=== PATIENT | female | born 1935 | race Caucasian/White ===

== ENCOUNTER 2016-11-06 01:38 | Emergency (ER) | payer MEDICARE ==
[2016-03-11 14:30] VITALS: BMI 22.1
[~2016-11-06 01:38] MED LIST: ARICEPT10 MG PO; ATIVAN0.5 MG PO; BUSPAR 15 MG TA15 MG PO; BUSPAR5 MG PO; DEPAKOTE125 MG PO; FLORANEX / LACT1 TAB PO; ISOSORBIDE MONO30 M1 PO; LIVALO2 MG PO; MEGACE40 MG PO; PACERONE100 MG PO; PRAVACHOL20 MG PO; SEROQUEL25 MG PO; TRAVATAN Z2.5 ML EACH EYE; VITAMIN D31000 UNIT PO; VITAMIN D5000 UNIT PO; ZOLOFT100 MG PO
[2016-11-06 02:11] LABS: UDS - AMPHET NEGATIVE QUAL (NEGATIVE); UDS - BARB NEGATIVE QUAL (NEGATIVE); UDS - BENZO NEGATIVE QUAL (NEGATIVE); UDS - COCAINE NEGATIVE QUAL (NEGATIVE); UDS - METH NEGATIVE QUAL (NEGATIVE); UDS - OPIATE NEGATIVE QUAL (NEGATIVE); UDS - PCP NEGATIVE QUAL (NEGATIVE); UDS - THC NEGATIVE QUAL (NEGATIVE)
[2016-11-06 02:12] LABS: APPEARANCE TURBID (CLEAR); COLOR YELLOW (YELLOW); GLUCOSE NEGATIVE (NEGATIVE); KETONE SMALL mg/dL (NEGATIVE); LEUKOCYTE ESTERASE 1+ (NEGATIVE); NITRITE NEGATIVE (NEGATIVE); PROTEIN TRACE mg/dL (NEGATIVE); SPECIFIC GRAVITY 1.015 (1.005-1.020)
[2016-11-06 02:13] LABS: AMORPHOUS SEDIMENT >1+ /lpf (NONE SEEN); BACTERIA MANY /hpf (NONE SEEN); BILIRUBIN NEGATIVE (NEGATIVE); UROBILINOGEN NORMAL (NORMAL)
[2016-11-06 02:17] LABS: BASOPHILS 0.1 % (0.0-2.0); EOSINOPHILS 1.1 % (0-7); HEMATOCRIT 37.9 % (36.0-48.0); HEMOGLOBIN 11.8 g/dL (12-16); IMMATURE GRANULOCYTES 0.4 % (0-5); MCH 29.9 pg (26.0-34.0); MCHC 31.1 g/dL (31.0-37.0); MCV 95.9 fL (80.0-100.0); MEAN PLATELET VOLUME 10.1 fL (7.4-10.4); MONOCYTES 7.5 % (2-11); NEUTROPHILS 54.9 % (40-80); RBC 3.95 10x6/uL (4.00-5.40); RDW 14.3 % (11.5-14.5); WBC 7.9 10x3/uL (4.8-10.8)
[2016-11-06 02:19] LABS: PLATELET COUNT 238 10x3/uL (130-400)
[2016-11-06 02:35] LABS: ALKALINE PHOSPHATASE 66 U/L (46-116); ALT (SGPT) 15 U/L (10-68); BILIRUBIN - TOTAL 0.24 mg/dL (0.2-1.3); CALC OSMOLALITY 286 mosm/kg (275-300); CALCIUM 8.8 mg/dL (8.5-10.1); CARBON DIOXIDE 33.4 mmol/L (21.0-32.0); CHLORIDE - SERUM 104 mmol/L (98-107); CREATININE - SERUM 0.7 mg/dL (0.6-1.3); GLUCOSE 85 mg/dL (74-106); POTASSIUM - SERUM 4.8 mmol/L (3.5-5.1); PROTEIN - SERUM 7.7 g/dL (6.4-8.2); SODIUM 143 mmol/L (136-145); UREA NITROGEN 22 mg/dL (7-18); eGFR NON AFRICAN AMERICAN 85 mL/min (90-120)
[2016-11-06 02:43] LABS: DIGOXIN 0.07 ng/mL (0.90-2.00); THYROID STIMULATING HORMONE 6.86 uIU/mL (0.36-3.74)
[2016-11-12 13:18] LABS: AEROBE ID Final report (()); RESULT 1 Aerococcus urinae (())
[2017-01-11 15:45] VITALS: BMI 15.9
== END 2016-11-06 03:40 | disposition home or self-care (01) ==
LOC: D.ER 01:38
PROVIDERS: Emergency Medicine
DX: R41.82 Altered mental status, unspecified (principal); N39.0 Urinary tract infection, site not specified; E86.0 Dehydration; F03.90 Unspecified dementia, unspecified severity, without behavioral disturbance, psychotic disturbance, mood disturbance, and anxiety; Z95.0 Presence of cardiac pacemaker

== ENCOUNTER 2016-11-26 08:03 | Inpatient (IN) | payer MEDICARE ==
[2016-11-26] VITALS (8 sets, daily range): BP systolic 113–146; BP diastolic 47–84; BMI 17.2
[~2016-11-26] VITALS: Ht 160 cm; Wt 41.8 kg
[2016-11-26 08:43] LABS: BASOPHILS 0.1 % (0.0-2.0); EOSINOPHILS 0.1 % (0-7); HEMATOCRIT 38.2 % (36.0-48.0); HEMOGLOBIN 11.8 g/dL (12-16); IMMATURE GRANULOCYTES 0.8 % (0-5); LYMPHOCYTES 8.4 % (15-50); MCH 29.6 pg (26.0-34.0); MCHC 30.9 g/dL (31.0-37.0); MEAN PLATELET VOLUME 10.7 fL (7.4-10.4); MONOCYTES 7.4 % (2-11); NEUTROPHILS 83.2 % (40-80); PLATELET COUNT 218 10x3/uL (130-400); RBC 3.98 10x6/uL (4.00-5.40); RDW 15.1 % (11.5-14.5); WBC 16.9 10x3/uL (4.8-10.8)
[2016-11-26 09:00] LABS: ALBUMIN 2.5 g/dL (3.4-5.0); ALKALINE PHOSPHATASE 82 U/L (46-116); ALT (SGPT) 14 U/L (10-68); CALC OSMOLALITY 297 mosm/kg (275-300); CALCIUM 8.5 mg/dL (8.5-10.1); CARBON DIOXIDE 33.2 mmol/L (21.0-32.0); CHLORIDE - SERUM 108 mmol/L (98-107); CREATININE - SERUM 0.6 mg/dL (0.6-1.3); GLUCOSE 114 mg/dL (74-106); POTASSIUM - SERUM 3.6 mmol/L (3.5-5.1); PROTEIN - SERUM 7.5 g/dL (6.4-8.2); SODIUM 148 mmol/L (136-145); UREA NITROGEN 22 mg/dL (7-18); eGFR NON AFRICAN AMERICAN > 90 mL/min (90-120)
[2016-11-26 09:10] LABS: CREATINE KINASE 28 UL (21-215); PRO BNP 956 pg/mL (0-450); TROPONIN-I < 0.017 ng/mL (0.000-0.060)
[2016-11-26 09:33] LABS: APPEARANCE CLOUDY (CLEAR); BILIRUBIN NEGATIVE (NEGATIVE); COLOR YELLOW (YELLOW); GLUCOSE 50 mg/dL (NEGATIVE); KETONE NEGATIVE (NEGATIVE); LEUKOCYTE ESTERASE NEGATIVE (NEGATIVE); NITRITE NEGATIVE (NEGATIVE); PROTEIN TRACE mg/dL (NEGATIVE); SPECIFIC GRAVITY 1.025 (1.005-1.020); UROBILINOGEN NORMAL (NORMAL)
[2016-11-26 09:34] LABS: BACTERIA MANY /hpf (NONE SEEN); EPITHELIAL CELLS OCC /hpf (0-5); MUCUS <1+ /lpf (NONE SEEN); RED CELLS - URINE OCC /hpf (0-5); WHITE CELLS - URINE 0-5 /hpf (0-5)
--- NOTE | 2016-11-26 13:00 | NUR ---
TALKED TO YENNY ABOUT PT BEING ON NONREBREATHER SAID WILL BE UP TO THONG IF PT GOES TO ICU OR NOT. PT STABLE AT THIS TIME OK TO BE ON THE FLOOR.
--- NOTE | 2016-11-26 13:00 | NUR ---
PT TO ROOM. PT VERY LETHARGIC. VS WNL. PIV TO LEFT HAND SWAB CAPS ON. DAUGHTER AT BEDSIDE. PT WITH NONREBREATHER MASK ON. PT NON RESPONSIVE TO STIMULI. WILL ADMIT
[2016-11-26] MEDS ORDERED: IPRAT-ALBUT 0.5-3 ML UPD (13:52)
[2016-11-26] MEDS ORDERED: OMNICEF300 MG PO (13:53)
[2016-11-26] MEDS ORDERED: GUAIFENESI100 MG/5 M PO (13:55)
[2016-11-26] MEDS ORDERED: SENNA LAXATIVE8.6 MG PO (13:56)
[2016-11-26] MEDS ORDERED: DEPAKOTE125 MG PO (13:57)
[2016-11-26] MEDS ORDERED: CALCIUM 500 + D1 TAB PO (13:58)
[2016-11-26] MEDS ORDERED: SEROQUEL50 MG PO (13:59)
[2016-11-26] MEDS ORDERED: SEROQUEL25 MG PO (13:59)
[2016-11-26] MEDS ORDERED: ACETAMINOPHEN325 MG PO (14:00)
[2016-11-26] MEDS ORDERED: REMERON15 MG PO (14:00)
[2016-11-26] MEDS ORDERED: ACIDOPHILUS LAC1 CAP PO (14:02)
[2016-11-26] MEDS ORDERED: LISINOPRIL10 MG PO (14:02)
[2016-11-26] MEDS ORDERED: NUEDEXTA 20-101 EACH PO (14:07)
--- NOTE | 2016-11-26 14:40 | NUR ---
INSERTED 16F MCCLELLAN STERILE TECHNIQUE INITIATED. IMMEDIATE URINE RETURN OF 600 CC BACK. PT TOLERATED WELL. MCCELLLAN DRAINING TO GRAVITY. DARK YELLOW CONCENTRATED. PT IN NO S/S DISTRESS WILL CONT TO MONITOR.
--- NOTE | 2016-11-26 15:31 | NUR ---
TALKED WITH DR BENITO ABOUT PT. BUGGYMAN CAME AND GOT ME PT RR ARE 43. WENT TO PT ROOM WITH DR BENITO. HE ASSESSED PT AND SAID TO ORDER ABG AND ECHO. DONE.
--- NOTE | 2016-11-26 16:58 | NUR ---
CALLED REPORT TO BRANDON IN ICU. MOVING PT TO ROOM [address]EN[address]O.
--- NOTE | 2016-11-26 17:15 | NUR ---
REC'D VIA BED FROM MED 2 NURSE, O2 VIA NR AT 100%, SAT 98%, TACHYPNIC, CONGESTED, CONTRACTED, FOLLOWS SIMPLE COMMANDS, ASSESSMENT COMPLETE PER FLOWSHEET, SPOUSE CALLED TO BEDSIDE, STATUS UPDATED, DISCUSSED CODE STATUS OF PATIENT, STATES DAUGHTER PRINCE CAPUTO IS POA, AND PATIENT TO REMAIN FULL CODE, MCCLELLAN TO GRAVITY WITH CONCENTRATED DRAINAGE TO BAG, SCD'S B/L, REPOSITIONED TO RIGHT SIED WITH PILLOW PROPPED TO BACK AND HEELS FLOATED
--- NOTE | 2016-11-26 17:17 | NUR ---
TRANSFERRED PT TO ICU ROOM [id number]
--- NOTE | 2016-11-26 17:25 | NUR ---
CALLED PT DAUGHTER DESMOND AND LET HER KNOW THAT PT WAS MOVED TO ROOM 2309.. PT VERBALIZES UNDERSTANDING.
--- NOTE | 2016-11-26 19:30 | NUR ---
ASSESSMENT COMPLETE. S1S2. PACEMAKER. RR SHALLOW; TACHYPNEA; CRACKLES THROUGHOUT ALL LOBES. FREQUENT COUGH NOTED. NON PRODUCTIVE; WEAK. PT ON 100% VIA NON REBREATHER. 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 MODERATE STIFFNESS NOTED TO THE UPPER EXTREMITIES. GREEN DISCHARGE IN RIGHT EYE. SEE FLOW SHEET FOR DETAILS.
--- NOTE | 2016-11-26 20:45 | NUR ---
NS BOLUS INFUSING PER SEPSIS PROTOCOL. SEE EMAR FOR DETAILS.
--- NOTE | 2016-11-26 23:10 | NUR ---
REASSESSMENT COMPLETE. NO CHANGES FROM PREVIOUS ASSESSMENT. WILL CONTINUE TO MONITOR.
[2016-11-27] VITALS (24 sets, daily range): BP systolic 97–161; BP diastolic 52–91; Ht 160 cm; Wt 41.8 kg
--- NOTE | 2016-11-27 00:25 | NUR ---
COMPLETE BED BATH. COMPLETE LINEN CHANGE. PT ROTATED FOR COMFORT AND TO TAKE PRESSURE OFF OF THE COCCYX. PILLOW BETWEEN LEGS.
--- NOTE | 2016-11-27 03:10 | NUR ---
REASSESSMENT COMPLETE. NO CHANGES FROM PREVIOUS ASSESSMENT. SEE FLOW SHEET FOR DETAILS.
[2016-11-27 04:54] LABS: HEMATOCRIT 39.3 % (36.0-48.0); HEMOGLOBIN 11.9 g/dL (12-16); MCH 29.3 pg (26.0-34.0); MCHC 30.3 g/dL (31.0-37.0); MCV 96.8 fL (80.0-100.0); MEAN PLATELET VOLUME 10.7 fL (7.4-10.4); PLATELET COUNT 234 10x3/uL (130-400); RBC 4.06 10x6/uL (4.00-5.40); RDW 14.9 % (11.5-14.5); WBC 20.9 10x3/uL (4.8-10.8)
[2016-11-27 05:21] LABS: EOSINOPHILS 1 % (0-7); LYMPHOCYTES 6 % (15-50); MONOCYTES 4 % (2-11); NEUTROPHILS 86 % (40-80); PLATELET ESTIMATE NORMAL
[2016-11-27 05:28] LABS: CALC OSMOLALITY 299 mosm/kg (275-300); CALCIUM 8.3 mg/dL (8.5-10.1); CARBON DIOXIDE 36.3 mmol/L (21.0-32.0); CHLORIDE - SERUM 107 mmol/L (98-107); CREATININE - SERUM 0.7 mg/dL (0.6-1.3); GLUCOSE 138 mg/dL (74-106); MAGNESIUM - SERUM 1.9 mg/dL (1.8-2.4); PHOSPHOROUS 3.8 mg/dL (2.5-4.9); POTASSIUM - SERUM 3.5 mmol/L (3.5-5.1); SODIUM 148 mmol/L (136-145); UREA NITROGEN 25 mg/dL (7-18); eGFR NON AFRICAN AMERICAN 85 mL/min (90-120)
--- NOTE | 2016-11-27 07:30 | NUR ---
RECEIVED PT FOR CARE. PT RESTING IN BED WITH EYES CLOSED. RIGHT EYE MATTED SHUT WITH YELLOW DRAINAGE. EYES CLEANED OUT WITH WARM RAG. PT TOLERATED WELL. BILATERAL SCDs IN PLACE.
--- NOTE | 2016-11-27 09:20 | NUR ---
NO CHANGES NOTED
--- NOTE | 2016-11-27 11:48 | NUR ---
PT HAD COMPLETE BATH AND LINEN CHANGE. TOLERATED WELL. NO NEEDS AT THIS TIME.
--- NOTE | 2016-11-27 12:40 | NUR ---
Is the patient Alert and Oriented? No 0 * PCP DR. COLON 0 * Pharmacy MED FROM ALF 0 * Preadmission Environment [facility] Facility 0 * Facility Name [facility] 0 * ADLs Total Dependent 0 * Equipment None 0 * Other Equipment PATIENT IS BED BOUND 0 * List name and contact numbers for known caregivers / representatives who currently or will assist patient after discharge: DAUGHTER: DESMOND VALDEZ [phone] BOYFRIEND: SERA SARMIENTO [phone] 0 * Community resources currently utilized None 0 * Additional services required to return to the preadmission environment? No 0 * Can the patient safely return to the preadmission environment? Yes 0 * Has this patient been hospitalized within the prior 30 days at any hospital? No 0 Grand Total: 0 PATIENT LIVES AT [facility]. SHE HAS BEEN A RESIDENT THERE FOR ABOUT 18 MONTHS. PATIENT IS NOT ABLE TO ANSWER QUESTIONS. HER DAUGHTER IS AT THE BEDSIDE. SHE STATES HER MOTHER'S PCP IS DR. COLON. SHE GETS HER MEDS THRU THE ALF. SHE IS BEDBOUND AND DOES NOT WALK. SHE STATES PLANS FOR HER TO RETURN BACK TO [facility] AND [facility] AT DISCHARGE.
--- NOTE | 2016-11-27 15:10 | NUR ---
PT'S FAMILY AT BEDSIDE. UPDATED ON PT'S STATUS.
--- NOTE | 2016-11-27 18:20 | NUR ---
PT'S FAMILY AT BEDSIDE. GIVEN MOUTH SWABS TO SWAB PT'S MOUTH OUT. PT ASKING FOR SOMETHING TO DRINK. WILL KEEP NPO AT THIS TIME AND SPEECH EVAL ORDERED FOR MORNING.
--- NOTE | 2016-11-27 19:50 | NUR ---
REC'D TO CARE, TECHNOLOGY RISK INTERN PER FLOWSHEET. PT AWAKE, VERBALIZES SOME, CONFUSION NOTED. ARMS AND LEGS CONTRACTED IN TOWARD BODY. PT VERY THIN, SKIN INTACT, SMALL BLANCHABLE AREA TO R BUTTOCKS. PT REPOSITIONED UP IN BED TO R SIDE.. DENIES PAIN OR NEEDS.
--- NOTE | 2016-11-27 21:45 | NUR ---
CARE PLAN REVIEWED. PT REPOSITIONED TO L SIDE WITH PILLOWS TO BONY PROMINENCES. PT COOPERATIVE, DENIES NEED.
--- NOTE | 2016-11-27 22:44 | NUR ---
REASSESSMENT PER FLOWSHEET. NO ACUTE CHANGES. RESTING QUIETLY, VSS.
[2016-11-28] VITALS (25 sets, daily range): BP systolic 100–159; BP diastolic 56–102
--- NOTE | 2016-11-28 00:23 | NUR ---
REPOSITIONED UP IN BED AND ORAL CARE PROVIDED. PT COOPERATIVE, REMAINS PLEASANTLY CONFUSED. VSS. ALARMS ON.
--- NOTE | 2016-11-28 02:05 | NUR ---
REPOSITIONED UP IN BED. VSS. OCC YELLING OUT, BUT DENIES NEEDS. ANSWERING QUESTIONS MORE APPROP AT TIMES. NO SIGN OF DISTRESS.
--- NOTE | 2016-11-28 03:17 | NUR ---
REASSESSMENT PER FLOWSHEET. NO ACUTE CHANGES. VSS. CALM AND RESTING AT THIS TIME.
[2016-11-28 04:10] LABS: BASOPHILS 0.2 % (0.0-2.0); EOSINOPHILS 0 % (0-7); IMMATURE GRANULOCYTES 1.3 % (0-5); LYMPHOCYTES 8.1 % (15-50); MCH 29.4 pg (26.0-34.0); MCHC 30.6 g/dL (31.0-37.0); MCV 96.3 fL (80.0-100.0); MEAN PLATELET VOLUME 10.4 fL (7.4-10.4); MONOCYTES 7.1 % (2-11); NEUTROPHILS 83.3 % (40-80); PLATELET COUNT 215 10x3/uL (130-400); RBC 3.74 10x6/uL (4.00-5.40); RDW 14.7 % (11.5-14.5)
[2016-11-28 04:13] LABS: WBC 14.2 10x3/uL (4.8-10.8)
[2016-11-28 04:20] LABS: ANION GAP 7.8 mmol/L (8-16); CALCIUM 8.3 mg/dL (8.5-10.1); CREATININE - SERUM 0.8 mg/dL (0.6-1.3)
[2016-11-28 04:28] LABS: POTASSIUM - SERUM 2.8 mmol/L (3.5-5.1)
--- NOTE | 2016-11-28 05:00 | NUR ---
K+ 2.8 - INITIATE KCL RIDERS 100MG IV X 6 PER ELECTROLYTE PROTOCOL
--- NOTE | 2016-11-28 06:16 | NUR ---
PT WITH OXYMIZER PULLED OFF - POX 92% ON RA. CHANGED O2 TO 3L NC - POX 95%
--- NOTE | 2016-11-28 06:21 | NUR ---
ADMIN TYLENOL PO PER NEW ORDER.
--- NOTE | 2016-11-28 11:00 | NUR ---
NO CHANGE NOTED
--- NOTE | 2016-11-28 15:00 | NUR ---
NO CHANGE NOTED
--- NOTE | 2016-11-28 19:45 | NUR ---
ASSESSMENT COMPLETED. SEE ASSESSMENT FLOWSHEET. HIGH PITCHED VOICE. CONFUSED, REORIENTED. ORAL CARE COMPLETED DUE TO NPO STATUS. MCCLELLAN CATHETER TO GRAVITY DRAINING SMALL AMOUNT OF CLEAR, MARRY URINE. LEFT HAND 18G PIV INTACT WITH D5NS @ 100ML/HR AND KCL RIDER FINISHING. O2 @ 3LPM/NC AND OUT OF NARES. O2 SAT 88%. PLACED O2 BACK IN NARES. WILL MONITOR.
--- NOTE | 2016-11-28 21:00 | NUR ---
FAMILY AT BEDSIDE FOR VISTATION. QUESTIONS ASKED, UPDATE GIVE. INFORMED OF NPO STATUS AND OF CURRENT DVT. WILL MONITOR.
--- NOTE | 2016-11-28 23:00 | NUR ---
NO ACUTE DISTRESS NOTED. WILL MONITOR.
--- NOTE | 2016-11-28 23:40 | NUR ---
CHANGED B/P CUFFS TO RT ARM AND REASSESSMENT COMPLETED. SEE ASSESSMENT FLOWSHEET. REMAINS CONFUSED. REORIENTED. DOES NOT WANT TO BE TOUCHED TO CHANGED B/P CUFF BUT EXPLAINED THE NEED. SWEATING NOTED. A/C IN ROOM TURNED DOWN. NO TEMP NOTED. WILL MONITOR.
[2016-11-29] VITALS (21 sets, daily range): BP systolic 83–181; BP diastolic 50–143
--- NOTE | 2016-11-29 01:30 | NUR ---
EYES CLOSED. NO ACUTE DISTRESS NOTED. WILL CONTINUE TO MONITOR.
--- NOTE | 2016-11-29 03:30 | NUR ---
PORTABLE CHEST XRAY COMPLETED. I & O'S COMPLETED. WILL MONITOR.
--- NOTE | 2016-11-29 04:00 | NUR ---
REASSESSMENT COMPLETED. SEE ASSESSMENT FLOWSHEET. NO NEW ACUTE CHANGES NOTED. AM LABS DRAWN. TOTAL BED BATH AND LINEN CHANGE COMPLETED. TOLERATED WELL WITH MINIMAL HOLLERING OUT. MCCLELLAN CATH CARE COMPLETED. TURNED AND REPOSITIONED TO RT SIDE WITH PILLOW SUPPORT. REDNESS TO BUTTOCKS NOTED AND ALEXANDRA'S BUTT PASTE APPLIED. WILL MONITOR.
[2016-11-29 04:34] LABS: BASOPHILS 0.4 % (0.0-2.0); EOSINOPHILS 0.4 % (0-7); HEMATOCRIT 35.4 % (36.0-48.0); HEMOGLOBIN 11.2 g/dL (12-16); IMMATURE GRANULOCYTES 3.1 % (0-5); LYMPHOCYTES 17.7 % (15-50); MCH 30.2 pg (26.0-34.0); MCHC 31.6 g/dL (31.0-37.0); MCV 95.4 fL (80.0-100.0); MEAN PLATELET VOLUME 10.4 fL (7.4-10.4); MONOCYTES 7.6 % (2-11); NEUTROPHILS 70.8 % (40-80); PLATELET COUNT 192 10x3/uL (130-400); RBC 3.71 10x6/uL (4.00-5.40); RDW 14.8 % (11.5-14.5); WBC 11.4 10x3/uL (4.8-10.8)
[2016-11-29 04:56] LABS: CALC OSMOLALITY 294 mosm/kg (275-300); CALCIUM 8.5 mg/dL (8.5-10.1); CARBON DIOXIDE 33.2 mmol/L (21.0-32.0); CHLORIDE - SERUM 110 mmol/L (98-107); CREATININE - SERUM 0.6 mg/dL (0.6-1.3); GLUCOSE 118 mg/dL (74-106); MAGNESIUM - SERUM 1.8 mg/dL (1.8-2.4); PHOSPHOROUS 2.1 mg/dL (2.5-4.9); POTASSIUM - SERUM 3.6 mmol/L (3.5-5.1); PRE-ALBUMIN 12.8 mg/dL (18.0-35.7); SODIUM 147 mmol/L (136-145); UREA NITROGEN 17 mg/dL (7-18); eGFR NON AFRICAN AMERICAN > 90 mL/min (90-120)
--- NOTE | 2016-11-29 06:00 | NUR ---
EYES CLOSED. NO ACUTE DISTRESS NOTED. WILL MONITOR.
--- NOTE | 2016-11-29 06:35 | NUR ---
BREATHING TREATMENT IN PROGRESS. NIBP CUFF ADJUSTED AND RETOOK B/P DUE TO HIGH READING. NO ACUTE DISTRESS NOTED. WILL MONITOR.
--- NOTE | 2016-11-29 19:40 | NUR ---
REC'D TO CARE. PHYSIOTHERAPY AIDE PER FLOWSHEET.. PT CONFUSED, BUT ANSWERS MOST QUESTIONS APPROP. EXTR WITH NOTED CONTRACTURES. PT ABLE TO CONVEY NEEDS. ORAL CARE PROVIDED. PT IS NPO. PT WITH TRANSFER ORDERS AWAITING ROOM. ALARMS ON AND C/L IN REACH.
--- NOTE | 2016-11-29 20:50 | NUR ---
NO VISITORS. RESIDENTIAL STAFF CALLED TO CHECK ON HER - SHE REPORTED THAT THEY ARE AWARE OF HER SWALLOWING DIFFICULTY AND THAT DAUGHTER SIGNED A WAVER THERE SAYING PT COULD EAT WHATEVER SHE WANTS.
--- NOTE | 2016-11-29 20:55 | NUR ---
REPOSITIONED UP IN BED. MCCLELLAN - CARE WITH SURE STEP WIPES. PT PLEASANTLY CONFUSED. VSS.
[2016-11-30] VITALS (21 sets, daily range): BP systolic 117–150; BP diastolic 60–96
--- NOTE | 2016-11-30 | NUR ---
RESTING QUIETLY WITH EYES CLOSED, VSS. NO SIGN OF DISTRESS.
[2016-11-30 03:49] LABS: BASOPHILS 0.2 % (0.0-2.0); EOSINOPHILS 0.3 % (0-7); HEMATOCRIT 36.8 % (36.0-48.0); HEMOGLOBIN 11.7 g/dL (12-16); IMMATURE GRANULOCYTES 2.1 % (0-5); LYMPHOCYTES 12.2 % (15-50); MCH 29.3 pg (26.0-34.0); MCHC 31.8 g/dL (31.0-37.0); MEAN PLATELET VOLUME 11.4 fL (7.4-10.4); MONOCYTES 6.6 % (2-11); NEUTROPHILS 78.6 % (40-80); PLATELET COUNT 186 10x3/uL (130-400); RDW 14.7 % (11.5-14.5); WBC 12.4 10x3/uL (4.8-10.8)
[2016-11-30 03:56] LABS: CALC OSMOLALITY 286 mosm/kg (275-300); CALCIUM 8.1 mg/dL (8.5-10.1); CARBON DIOXIDE 30.2 mmol/L (21.0-32.0); CHLORIDE - SERUM 105 mmol/L (98-107); CREATININE - SERUM 0.7 mg/dL (0.6-1.3); GLUCOSE 104 mg/dL (74-106); MAGNESIUM - SERUM 1.6 mg/dL (1.8-2.4); PHOSPHOROUS 2.5 mg/dL (2.5-4.9); POTASSIUM - SERUM 3.9 mmol/L (3.5-5.1); SODIUM 144 mmol/L (136-145); UREA NITROGEN 12 mg/dL (7-18); eGFR NON AFRICAN AMERICAN 85 mL/min (90-120)
--- NOTE | 2016-11-30 08:06 | NUR ---
0700 PT AWAKE AND ALERT BUT DISORIENTED AND CONFUSED. ABLE TO FOLLOW COMMANDS WHEN PROMPTED. HEART SOUNDS REGULAR, S1S2 NOTED. LUNG SOUNDS COURSE/CRACKLES IN UPPER LOBES BILAT AND RT MIDDLE LOBE, DIMINISHED IN LOWER LOBES BILAT. PT TACHYPNIC AT THIS TIME AND INSTRUCTED TO BREATHE SLOWLY. PT ABLE TO GRAB ARM RAILS TO ASSIST WITH TURNING, REPOSITIONED TO RIGHT SIDE. PT DENIES PAIN BUT STATES SHE DOESNT UNDERSTAND WHERE SHE IS AND WHY SHE IS HERE. ATTEMPTED TO REORIENT PT. WILL CONTINUE TO MONITOR
--- NOTE | 2016-11-30 09:12 | NUR ---
NUTRITION MONITORING & EVAL CHART REVIEWED. NPO UNTIL REPEAT SWALLOW EVAL. WILL PROVIDE DIET WHEN OK'D BY SPEECH THERAPY. RD FOLLOWING
--- NOTE | 2016-11-30 10:25 | NUR ---
0900 SPEECH EVAL REPEATED. PT ABLE TO PARTIALLY SWALLOW CRUSHED MEDS BUT FELL ASLEEP DURING EVAL. PT RESTING AT THIS TIME. VITAL SIGNS STABLE.
--- NOTE | 2016-11-30 12:04 | NUR ---
1100 PT REPOSITIONED FOR COMFORT IN BED. WILL DISCUSS CODE STATUS, ANTICOAGULATION ALTERNATIVES, AND NUTRITION NEEDS WITH FAMILY WHEN AVAILABLE. NO FURTHER CHANGES AT THIS TIME. VITAL SIGNS STABLE.
[2016-11-30 17:57] LABS: APPEARANCE CLEAR (CLEAR); BILIRUBIN NEGATIVE (NEGATIVE); COLOR YELLOW (YELLOW); GLUCOSE NEGATIVE (NEGATIVE); KETONE NEGATIVE (NEGATIVE); LEUKOCYTE ESTERASE NEGATIVE (NEGATIVE); NITRITE NEGATIVE (NEGATIVE); PROTEIN TRACE mg/dL (NEGATIVE); SPECIFIC GRAVITY 1.015 (1.005-1.020); UROBILINOGEN NORMAL (NORMAL)
--- NOTE | 2016-11-30 18:40 | NUR ---
1300 FAMILY AT BEDSIDE. EDUCATION GIVEN TO FAMILY ABOUT PEG TUBE FOR PT DUE TO MALNUTRITION. FAMILY VERBALIZES UNDERSTANDING. WILL CONSULT WITH PHYSICIANS.
--- NOTE | 2016-11-30 18:41 | NUR ---
1500 PT REPOSITIONED FOR COMFORT. MCCLELLAN IRRIGATED FOR URINE SPECIMEN. VITAL SIGNS STABLE. NO FURTHER CHANGES.
--- NOTE | 2016-11-30 18:42 | NUR ---
1700 PT AWAKE AND ALERT. DENIES PAIN AT THIS TIME AND STATES THAT SHE IS "READY TO EAT AND GO HOME" SURGERY HAS BEEN CONSULTED FOR PEG TUBE PLACEMENT
--- NOTE | 2016-11-30 19:30 | NUR ---
REC'D TO CARE, OCCUPATIONAL HEALTH COORDINATOR PER FLOWSHEET. PT PLEASANTLY CONFUSED, ANSWERS SOME QUESTIONS APPROP. VSS. NO SIGN OF DISTRESS. PT WITH TRANSFER ORDERS - AWAITING BED. IVF INFUSING TO L WRIST PIV, NO REDNESS OR SWELLING AT SITE.
--- NOTE | 2016-11-30 21:22 | NUR ---
FAMILY AT BS, UPDATE GIVEN AND QUESTIONS ANSWERED.
--- NOTE | 2016-11-30 23:00 | NUR ---
RESTING WITH EYES CLOSED, NO SIGN OF DISTRESS. ALARMS ON.
[2016-12-01] VITALS (14 sets, daily range): BP systolic 105–162; BP diastolic 49–96
--- NOTE | 2016-12-01 00:21 | NUR ---
COMPLETE BATH AND LINEN CHANGE DONE. MCCLELLAN CARE DONE. LOTION TO DRY SKIN AND HAIR WASHED. CHG PREP WIPES USED.
--- NOTE | 2016-12-01 02:00 | NUR ---
PT RESTING QUIETLY, NO SIGN OF DISTRESS. VSS.
--- NOTE | 2016-12-01 04:00 | NUR ---
RESTING QUIETLY, NO SIGN OF DISTRESS. I AND O PER FLOWSHEET.
[2016-12-01 05:10] LABS: BASOPHILS 0.1 % (0.0-2.0); EOSINOPHILS 1.5 % (0-7); HEMATOCRIT 35.1 % (36.0-48.0); HEMOGLOBIN 11.3 g/dL (12-16); IMMATURE GRANULOCYTES 1.4 % (0-5); LYMPHOCYTES 17.5 % (15-50); MCH 29.4 pg (26.0-34.0); MCHC 32.2 g/dL (31.0-37.0); MCV 91.4 fL (80.0-100.0); MEAN PLATELET VOLUME 10.2 fL (7.4-10.4); MONOCYTES 6.5 % (2-11); PLATELET COUNT 193 10x3/uL (130-400); RBC 3.84 10x6/uL (4.00-5.40); RDW 14.5 % (11.5-14.5)
[2016-12-01 05:20] LABS: WBC 9.2 10x3/uL (4.8-10.8)
[2016-12-01 05:23] LABS: CALC OSMOLALITY 278 mosm/kg (275-300); CALCIUM 8.2 mg/dL (8.5-10.1); CHLORIDE - SERUM 104 mmol/L (98-107); CREATININE - SERUM 0.6 mg/dL (0.6-1.3); GLUCOSE 88 mg/dL (74-106); SODIUM 141 mmol/L (136-145); UREA NITROGEN 9 mg/dL (7-18); eGFR NON AFRICAN AMERICAN > 90 mL/min (90-120)
[2016-12-01 05:45] LABS: CARBON DIOXIDE 30.9 mmol/L (21.0-32.0)
[2016-12-01 05:52] LABS: POTASSIUM - SERUM 3.3 mmol/L (3.5-5.1)
--- NOTE | 2016-12-01 06:13 | NUR ---
PT REPOSITIONED UP IN BED, ORAL CARE DONE. PT PLEASANTLY CONFUSED. VSS. NO VISITORS AT THIS TIME.
--- NOTE | 2016-12-01 07:00 | NUR ---
REPORT RECEIVED. PATIENT IN SEMIFOWLERS POSITION WITH EYES CLOSED. ASSESSMENT COMPLETED. NO VISUAL CUES OF DISTRESS NOTED.
--- NOTE | 2016-12-01 11:34 | NUR ---
PATIENT YELLING OUT MOST OF THE MORNING. WHEN YOU ASK WHAT IS WRONG, SHE JUST SAYS THAT SHE IS LONELY. HAVE BEEN IN AND OUT OF HER ROOM, WE HAVE RUBBED LOTION ALL OVER, COMBED HER HAIR 6-7 TIMES, RUBBED HER FEET, REPOSITIONED EVERY HOUR ALMOST AND DONE ORAL CARE ALMOST FREQUENTLY. WILL CONTINUE TO MONITOR. THE LAST VISIT MADE IN THE ROOM, SHE STATED SHE WAS TIRED AND NEEDED A NAP.
--- NOTE | 2016-12-01 12:12 | NUR ---
PATIENTS DAUGHTER AND HRE FRIEND HERE TO SEE PATIENT. DISCUSSED THE EGD WITH CRISELDA MOORE, AT BEDSIDE WITH HER. CONSENTS OBTAINED. THEY DENY QUESTIONS.
--- NOTE | 2016-12-01 15:59 | NUR ---
PATIENTS BOYFRIEND JUST LEFT. PATIENT WAS RESTING COMFORTABLE PRIOR TO THIS PAST VISITATION HOUR. SHE IS BACK TO YELLING AND THIS TIME SHE IS GRABBING AND TWISTING SKIN WHEN THIS NURSE GOT NEAR THE BED. BOYFRIEND STAYED BACK. HE WAS ASKED TO LEAVE, EXPLAINING THAT VISITING HOURS HAVE BEEN OVER FOR ALMOST 30 MINUTES. PATIENT WAS REPOSITIONED, HAIR COMBED, ATTEMPTED TO DO ORAL CARE BUT WAS UNSUCCESSFUL. LIGHT TURNED OFF. HOPEFULLY THE PATIENT WILL CALM DOWN.
--- NOTE | 2016-12-01 17:02 | NUR ---
PATIENT IS RESTING COMFORTABLE ON HER LEFT SIDE. THIS TIME SHE IS REMAINING ON HER SIDE. SHE HAS STOPPED YELLING OUT AND APPEARS TO BE SLEEPING. WILL CONTINUE TO MONITOR.
--- NOTE | 2016-12-01 19:30 | NUR ---
REC'D TO CARE, SCHOOL ADJUSTMENT COUNSELOR PER FLOWSHEET. PT WITH TRANSFER ORDERS - AWAITING BED. PT OCC YELLS OUT, CALMS WHEN TALKED TO. PLEASANTLY CONFUSED. PT WITH SLIGHT CONTRACTURES OF EXTR. PT ABLE TO GRASP. WILL CONT TURN Q2 HR. ORAL CARE PROVIDED. PT NPO. PLAN FOR PEG PLACEMENT TOMORROW. ALARMS ON. C/L IN REACH.
--- NOTE | 2016-12-01 20:34 | NUR ---
DR. EDMOND PAGED RE: LOVENOX - ORDER TO HOLD IN AM.
--- NOTE | 2016-12-01 21:30 | NUR ---
L WRIST PIV LEAKING - D/C'D INTACT AND IVF RESUMED TO R FA PIV.
--- NOTE | 2016-12-01 21:56 | NUR ---
LAM-CARE DONE. PT REPOSITIONED UP IN BED TO R SIDE. FACE WASHED. PILLOW BETWEEN KNEES. BARRIER CREAM TO BUTTOCKS. PT DENIES NEEDS. C/L IN REACH.
--- NOTE | 2016-12-01 23:12 | NUR ---
PT RESTING QUIETLY, VSS. ALARMS ON.
[2016-12-02] VITALS (13 sets, daily range): BP systolic 112–139; BP diastolic 53–96
[2016-12-02 04:18] LABS: BASOPHILS 0.1 % (0.0-2.0); EOSINOPHILS 0.9 % (0-7); HEMATOCRIT 35.8 % (36.0-48.0); HEMOGLOBIN 11.2 g/dL (12-16); IMMATURE GRANULOCYTES 1.3 % (0-5); LYMPHOCYTES 19.2 % (15-50); MCH 28.7 pg (26.0-34.0); MCHC 31.3 g/dL (31.0-37.0); MCV 91.8 fL (80.0-100.0); MEAN PLATELET VOLUME 10.3 fL (7.4-10.4); MONOCYTES 7.7 % (2-11); NEUTROPHILS 70.8 % (40-80); PLATELET COUNT 199 10x3/uL (130-400); RDW 14.5 % (11.5-14.5); WBC 10.3 10x3/uL (4.8-10.8)
[2016-12-02 04:25] LABS: CALC OSMOLALITY 277 mosm/kg (275-300); CALCIUM 7.9 mg/dL (8.5-10.1); CARBON DIOXIDE 32.5 mmol/L (21.0-32.0); CHLORIDE - SERUM 105 mmol/L (98-107); CREATININE - SERUM 0.7 mg/dL (0.6-1.3); GLUCOSE 98 mg/dL (74-106); POTASSIUM - SERUM 4.1 mmol/L (3.5-5.1); SODIUM 140 mmol/L (136-145); UREA NITROGEN 9 mg/dL (7-18); eGFR NON AFRICAN AMERICAN 85 mL/min (90-120)
--- NOTE | 2016-12-02 07:15 | NUR ---
REPORT RECEIVED. ASSESSMENT COMPLETED. PATIENT IN SEMIFOWLERS POSITION. NO NEEDS VOICED.
--- NOTE | 2016-12-02 08:58 | NUR ---
NUTRITION MONITORING & EVAL PT FOR PEG TUBE TODAY. 1)RECOMMEND JEVITY 1.2 @15 CC/HR. 2)INCREASE 10 CC/HR Q 12 HOURS TOLERATED TO GOAL RATE 45 CC/HR. 3)50 CC H2O FLUSH Q 4 HOURS PER PUMP. 4)MONITOR ELECTROLYTES FOR SIGNS OF REFEEDING SYNDROME. RD FOLLOWING
--- NOTE | 2016-12-02 09:39 | NUR ---
DR SIMMONS PAGED IN REGARDS TO CONSULT.
[2016-12-02 11:10] LABS: APPEARANCE CLEAR (CLEAR); BILIRUBIN NEGATIVE (NEGATIVE); COLOR YELLOW (YELLOW); GLUCOSE NEGATIVE (NEGATIVE); KETONE NEGATIVE (NEGATIVE); LEUKOCYTE ESTERASE NEGATIVE (NEGATIVE); NITRITE NEGATIVE (NEGATIVE); PROTEIN TRACE mg/dL (NEGATIVE); SPECIFIC GRAVITY 1.015 (1.005-1.020); UROBILINOGEN NORMAL (NORMAL)
[2016-12-02 11:11] LABS: BACTERIA NONE SEEN /hpf (NONE SEEN); EPITHELIAL CELLS NSEEN /hpf (0-5); RED CELLS - URINE 0-5 /hpf (0-5); WHITE CELLS - URINE 0-5 /hpf (0-5)
--- NOTE | 2016-12-02 11:30 | NUR ---
STARTED BEDSIDE EGD WITH PEG PLACEMENT.
--- NOTE | 2016-12-02 11:45 | NUR ---
BEDSIDE PEG PLACEMENT COMPLETED. WILL GET ABD BINDER ORDERED AND PLACE ON PATIENT.
--- NOTE | 2016-12-02 12:29 | NUR ---
DRAIN GAUZE PLACED AROUND PEG INSERTION SITE. PEG HOOKED UP TO DRAIN TO GRAVITY TO A MCCLELLAN BAG. ABD PLACED.
--- NOTE | 2016-12-02 16:28 | NUR ---
CHAYO, WITH SPEECH THERAPY HERE QUESTIONING TO WETHER OR NOT TO CONTINUE FEEDING TRIALS WITH THE PATIENT. HE STATED THAT SHE WAS ABLE TO DO SOME PUREE ON WEDNESDAY. EXPLAINED THAT I WAS UNDER THE UNDERSTANDING THAT SHE WOULD NOT BE DOING ANYTHING BY MOUTH AFTER THE PEG WAS PLACED. DR CH WAS PAGED TO CONFIRM THIS. EXPLAINED WHAT CHAYO HAD SAID AND PER DR CH, PATIENT WILL NOT DO ANYMORE PO INTAKE AND SPEECH CONSULT WILL BE DISCONTINUED. THIS WAS EXPLAINED TO CHAYO.
--- NOTE | 2016-12-02 17:38 | NUR ---
PATIENT RESTING QUIETLY. SHE BARELY WOKE WHEN SHE WAS REPOSITIONED IN BED. NO VISUAL CUES OF DISTRESS NOTED.
--- NOTE | 2016-12-02 19:27 | NUR ---
REPORT RECIEVED. ASSESSMENT COMPLETE PER FLOW SHEET. VSS. WILL CONTINUE TO MONITOR.
--- NOTE | 2016-12-02 21:26 | OP ---
PATIENT NAME: AGUSTO QUARLES MEDICAL RECORD: [id number] :33 LOCATION:D[facility] [address] ADMISSION DATE:11/26/16 SURGEON: TERRELL CUI MD DATE OF OPERATION: 12/02/2016 SURGEON: Terrell Cui MD PREOPERATIVE DIAGNOSIS: Dysphagia. POSTOPERATIVE DIAGNOSIS: Dysphagia. PROCEDURE PERFORMED: Esophagogastroduodenoscopy with percutaneous endoscopic gastrostomy tube placement. ANESTHESIA: Total intravenous anesthesia. COMPLICATIONS: None. SPECIMENS: None. Case was contaminated. ESTIMATED BLOOD LOSS: 5 cc. OPERATIVE COURSE: After consent was obtained, the patient was placed in supine position on her ICU bed, total intravenous anesthesia was given. A bite block was placed. Hurricaine [place] was administered. A timeout was taken to confirm the correct patient and procedure. At this time, the scope was passed through the bite block into the posterior oropharynx. The epiglottis was identified. The scope was passed posterior to the epiglottis. The esophagus was insufflated. The scope was passed through the esophagus under direct endoscopic vision and advanced to the stomach. The stomach was insufflated. The light was transilluminated at a site in the left upper quadrant. The skin was marked and the skin was prepped and draped in typical sterile fashion. Local anesthetic was administered. The grasper was passed through the working channel on the scope. Under direct endoscopic vision, the needle was passed through the anterior abdominal wall and into the stomach. The Angiocath was left in place. The needle was removed. The wire was passed through the Angiocath. The wire was grasped with a snare grasper. At this time, the wire and the endoscope were removed. The wire was connected to the gastrostomy tube and using a standard pull technique, the gastrostomy tube was advanced into the oropharynx and delivered to the anterior abdominal wall and secured to the skin at 2 cm. At the end of the case, all needle and instrument counts were correct. No complications occurred. The patient tolerated the procedure well. TRANSINT:[id number] Voice Confirmation ID: [id number] DOCUMENT ID: [id number] OPERATIVE REPORT [id number] AGUSTO QUARLES TERRELL CUI MD at 212 CC: [id number] DICTATION DATE: 12/02/16 1143 MANAGER OFFICE: 12/02/16 192 ADM IN [facility] [address] [id number]
[2016-12-03 04:00] VITALS: BP 142/52
[2016-12-03 06:32] LABS: BASOPHILS 0.1 % (0.0-2.0); EOSINOPHILS 1.1 % (0-7); HEMATOCRIT 35.8 % (36.0-48.0); HEMOGLOBIN 11.3 g/dL (12-16); IMMATURE GRANULOCYTES 0.8 % (0-5); LYMPHOCYTES 17.1 % (15-50); MCH 28.9 pg (26.0-34.0); MCHC 31.6 g/dL (31.0-37.0); MCV 91.6 fL (80.0-100.0); MEAN PLATELET VOLUME 10.4 fL (7.4-10.4); NEUTROPHILS 73.9 % (40-80); PLATELET COUNT 210 10x3/uL (130-400); RBC 3.91 10x6/uL (4.00-5.40); WBC 8.6 10x3/uL (4.8-10.8)
[2016-12-03 06:59] LABS: ALBUMIN 2.5 g/dL (3.4-5.0); ALKALINE PHOSPHATASE 55 U/L (46-116); ALT (SGPT) 24 U/L (10-68); BILIRUBIN - TOTAL 0.51 mg/dL (0.2-1.3); CALC OSMOLALITY 273 mosm/kg (275-300); CALCIUM 8.4 mg/dL (8.5-10.1); CARBON DIOXIDE 28.5 mmol/L (21.0-32.0); CHLORIDE - SERUM 102 mmol/L (98-107); CREATININE - SERUM 0.6 mg/dL (0.6-1.3); GLUCOSE 137 mg/dL (74-106); POTASSIUM - SERUM 3.5 mmol/L (3.5-5.1); SODIUM 137 mmol/L (136-145); UREA NITROGEN 8 mg/dL (7-18); eGFR NON AFRICAN AMERICAN > 90 mL/min (90-120)
--- NOTE | 2016-12-03 07:55 | NUR ---
PATIENT ALERT IN BED WITH ZAC NIEVES PRESENT. SIDE RAILS UP X2. BED IN LOW POSITION. CALL LIGHT IN REACH.
--- NOTE | 2016-12-03 08:16 | NUR ---
PT RECIEVED ON WALKING ROUNDS AWAKE AND ALERT TO SURROUONDINGS CONFUSED TO PLACE AND TIME CALL LIGHT INREACH SIDE RAILS UP X 2 PEG PATENT TO ABDOMINAL FLUID LIGHT BROWN TO GRAVITY DRAIN IN FOLY BAG AT BEDSIDE. HAS MCCLELLAN CATHETER PATENT OT CLEAR YELLOW URINE PER GRAVITY FLOW. CONTRACTURES NOTED TO BILATERAL LEGS. IN CONTACT ISOLATION FOR ECOLI IN URINE. WILL MONITOR,
[2016-12-03 08:47] VITALS: BP 126/62
--- NOTE | 2016-12-03 10:41 | NUR ---
NUTRITION MONITORING & EVAL CHART REVIEWED. SPOKE WITH NURSING. ORDERED TUBE FEEDS TO START PER PEG. RECOMMEND MONITOR ELECTROLYTES FOR SIGNS OF REFEEDING SYNDROME. RD FOLLOWING
[2016-12-03 13:06] VITALS: BP 128/49
[2016-12-03 16:23] VITALS: BP 118/57
[2016-12-03 20:00] VITALS: BP 118/58
--- NOTE | 2016-12-03 20:00 | NUR ---
PATIENT SLEEPING ON LEFT SIDE. RR EVEN AND UNLABORED. O2 OFF AT THIS TIME. IV TO RIGHT FA PATENT WITH NO REDNESS OR SWELLING. PEG TUBE TO FEEDINGS WITH ABD BINDER IN PLACE. MCCLELLAN SECURED WITH STATLOCK AND DRAINING TO GRAVITY. SRX2. BED LOW. DOOR OPEN.
--- NOTE | 2016-12-03 23:10 | NUR ---
XANAX GIVEN FOR AGAITION VIA PEG TUBE PER ORDER.
[2016-12-04] VITALS: BP 105/50
--- NOTE | 2016-12-04 | NUR ---
RESIDUAL CHECK YIELDED 0ML.
--- NOTE | 2016-12-04 03:00 | NUR ---
INCREASED FEEDINGS TO 25/HR PER ORDER.
[2016-12-04 04:00] VITALS: BP 96/45
[2016-12-04 05:08] LABS: BASOPHILS 0.1 % (0.0-2.0); EOSINOPHILS 1.6 % (0-7); HEMATOCRIT 32.5 % (36.0-48.0); HEMOGLOBIN 10.3 g/dL (12-16); IMMATURE GRANULOCYTES 0.4 % (0-5); LYMPHOCYTES 24.4 % (15-50); MCH 28.6 pg (26.0-34.0); MCHC 31.7 g/dL (31.0-37.0); MCV 90.3 fL (80.0-100.0); MEAN PLATELET VOLUME 10.3 fL (7.4-10.4); MONOCYTES 7.8 % (2-11); NEUTROPHILS 65.7 % (40-80); PLATELET COUNT 211 10x3/uL (130-400); RDW 14.8 % (11.5-14.5); WBC 8.2 10x3/uL (4.8-10.8)
[2016-12-04 05:47] LABS: CALC OSMOLALITY 276 mosm/kg (275-300); CALCIUM 8.2 mg/dL (8.5-10.1); CARBON DIOXIDE 29.2 mmol/L (21.0-32.0); CHLORIDE - SERUM 105 mmol/L (98-107); CREATININE - SERUM 0.6 mg/dL (0.6-1.3); GLUCOSE 104 mg/dL (74-106); POTASSIUM - SERUM 3.2 mmol/L (3.5-5.1); SODIUM 140 mmol/L (136-145); UREA NITROGEN 7 mg/dL (7-18); eGFR NON AFRICAN AMERICAN > 90 mL/min (90-120)
--- NOTE | 2016-12-04 07:00 | NUR ---
REPORT RECIEVED ASSUMED CARE. PATIENT IN BED WITH IV INTACT. NO COMPLAINTS AT THIS TIME. EYES CLOSED RESTING QUIETLY. CALL LIGHT WITHIN REACH.
[2016-12-04 08:44] VITALS: BP 138/70
--- NOTE | 2016-12-04 10:25 | NUR ---
PATIENT RECIEVED SCHEDULED MEDS AND POTASSIUM AT THIS TIME PER PEG TUBE. IV INTACT. NO COMPLAINTS. RESIDUAL CHECKED. 0 ML. TF GOING AT 35. CALL LIGHT WITHIN REACH.
[2016-12-04] MEDS ORDERED: ISOSORBIDE DINI10 MG PEG (10:50)
[2016-12-04 13:04] VITALS: BP 123/70
--- NOTE | 2016-12-04 14:24 | NUR ---
CM REASSESSMENT NOTE: PATIENT IS RETURNING TO [facility] TODAY BY FACILITY VAN TO A SKILLED BED.
--- NOTE | 2016-12-04 14:45 | NUR ---
PATIENT IV REMOVED WITH CATH TIP INTACT BY STUDENT. DRESSING APPLIED. CALL LIGHT WITHIN REACH.
--- NOTE | 2016-12-04 15:30 | NUR ---
PATIENT IN BED AT THIS TIME. TN HERE TO GET PATIENT. PATIENT DRESSING TO ABDOMEN CHANGED. BLEEDING A SMALL AMOUNT AROUND PEG SITE. BLED THROUGH ABOMINAL BINDER. NEW DRESSING PLACED AND NEW ABDOMINAL BINDER PUT ON PATIENT. RESIDUAL CHECKED AGAIN. 0 ML. FLUSHED WITH 60 ML WATER. MCCLELLAN REMOVED AT THIS TIME WELL. ASSISTED X 2 TO WC. PATIENT TAKEN DOWN BY TN STAFF WITH PERSONAL BELONGINGS TO VEHICLE.
--- NOTE | 2016-12-04 15:45 | NUR ---
TRIED TO CALL REPORT TO [facility] AT THIS TIME. WAS TOLD THAT NURSE WAS TAKING REPORT ON ANOTHER PATIENT AND THAT SHE WOULD CALL ME BACK.
--- NOTE | 2016-12-04 18:03 | NUR ---
CALLED [facility] AGAIN ASKING TO GIVE REPORT TO NURSE. STILL DID NOT SPEAK WITH NURSE. WAS TOLD THAT THE DON WAS ASSESSING THE PEG SITE AND THAT THERE WAS TOO MUCH BLEEDING COMING FROM SITE THAT THE PATIENT WAS COMING BACK TO THE HOSPITAL, SO NO REPORT GIVEN AT THIS TIME. WAS ALSO TOLD THAT THE NURSE HAD TRIED TO CALL ME BACK AND THAT THEY WENT TO A VOICE MAIL, SO NEVER SPOKE WITH ME ABOUT THE PATIENT.
--- NOTE | 2016-12-07 10:08 | EC ---
PATIENT:AGUSTO QUARLES DATE OF SERVICE: 11/26/16 SEX: F MEDICAL RECORD: [id number] DATE OF : 31 LOCATION:D.MS [address] AGE OF PATIENT: 81 ADMISSION DATE: 11/26/16 REFERRING PHYSICIAN: INTERPRETING PHYSICIAN: KRAIG STAPLETON MD ECHOCARDIOGRAM REPORT ECHO CHARGES 4 ECHO COMPLETE CLINICAL DIAGNOSIS: CHF/ RESP DISTRESS ECHOCARDIOGRAPHIC MEASUREMENTS (adult normal given) AC root (d.<3.7cm) 2.5 LV Septum d (<1.2 cm> 1.2 Valve Excursion 1.2 LV Septum (systole) 1.5 Left Atria (s.<4.0cm> 2.9 LVPW d(<1.2cm) 1.3 RV (d.<2.3cm) 3.8 LVPW (sytole) 1.5 LV diastole(<5.6CM) 4.2 MV E-F(>70mm/sec) LV systole 3.2 LVOT Diameter 1.6 MV exc.(>10mm) 1.3 Est.ejection fraction (50-75%) Pericardial Effusion N DOPPLER: LVIT A 74.0 E 59.0 LA RVSP 42 LVOT 127 AOP1/2T Asc. Ao 163 RVOT 83 RA PA 128 AV Gradient Peak 11.30 AV Mean 5.44 AV Area 1.3 MV Gradient Peak 3.81 MV Mean 1.66 MV Area COMMENTS: Range Rider: Pato PEREZ [employer] Harvest Machine Operator:Ernesto Stapleton TAPE# PACS DATE OF SERVICE: 11/27/2016 Echocardiogram FINDINGS: 1. Left ventricular chamber size is within normal limits. Left ventricular systolic function is normal. Overall ejection fraction estimated at 60%. 2. Left atrium, right atrium and right ventricular chamber sizes are within normal limits. 3. Valvular structures have normal structure and motion. ECHOCARDIOGRAM REPORT [id number] AGUSTO QUARLES 4. Doppler interrogation reveals [id number] mitral regurgitation, mild-to- moderate tricuspid regurgitation, no other valvular insufficiency or stenosis. Pulmonary systolic pressure is mildly elevated estimated at 42 mmHg. 5. No evidence of pericardial effusion or left ventricular thrombus. TRANSINT:[id number] Voice Confirmation ID: [id number] DOCUMENT ID: [id number] KRAIG STAPLETON MD at 1006 CC: [id number] DICTATION DATE: 11/27/16 1652 PATCHER: 11/28/16 0346 DIS IN 12/04/16 [facility] [address] [place] [id number]
== END 2016-12-04 19:11 | DRG 981 ==
LOC: D.ER 08:03 → D.MS 11:42 → D.ICU 11:42 → D.M2 11:42 → D.ICU 17:13 → D.MS 12-02 20:09
PROVIDERS: Emergency Medicine; Family Medicine Adult Medicine; Internal Medicine Pulmonary Disease; ADMIT Emergency Medicine
PROC: 0T9B70Z Drainage of Bladder with Drainage Device, Via Natural or Artificial Opening (ICD-10-PCS; principal; 2016-11-26)
PROC: 0DH Gastrointestinal System, Insertion (ICD-10-PCS; 2016-12-02)
DX: I50.31 Acute diastolic (congestive) heart failure (principal); G93.41 Metabolic encephalopathy; J96.02 Acute respiratory failure with hypercapnia; J96.01 Acute respiratory failure with hypoxia; J15.6 Pneumonia due to other Gram-negative bacteria; J15.212 Pneumonia due to Methicillin resistant Staphylococcus aureus; E43 Unspecified severe protein-calorie malnutrition; N39.0 Urinary tract infection, site not specified; I74.3 Embolism and thrombosis of arteries of the lower extremities; J44.0 Chronic obstructive pulmonary disease with (acute) lower respiratory infection; E87.0 Hyperosmolality and hypernatremia; Z68.1 Body mass index [BMI] 19.9 or less, adult; G30.9 Alzheimer's disease, unspecified; F02.80 Dementia in other diseases classified elsewhere, unspecified severity, without behavioral disturbance, psychotic disturbance, mood disturbance, and anxiety; I11.0 Hypertensive heart disease with heart failure; H10.9 Unspecified conjunctivitis; L89.152 Pressure ulcer of sacral region, stage 2; E87.6 Hypokalemia; H40.9 Unspecified glaucoma; D64.9 Anemia, unspecified; B96.20 Unspecified Escherichia coli [E. coli] as the cause of diseases classified elsewhere; I08.1 Rheumatic disorders of both mitral and tricuspid valves; Z91.19 Patient's noncompliance with other medical treatment and regimen; Z95.0 Presence of cardiac pacemaker; Z87.891 Personal history of nicotine dependence

== ENCOUNTER 2016-12-04 19:13 | Observation (INO) | payer MEDICARE ==
[~2016-12-04] VITALS: Ht 160 cm; Wt 49.9 kg
[~2016-12-04 19:13] MED LIST changes: +ACETAMINOPHEN325 MG PO; +ACIDOPHILUS LAC1 CAP PO; +CALCIUM 500 + D1 TAB PO; +GUAIFENESI100 MG/5 M PO; +IPRAT-ALBUT 0.5-3 ML UPD; +ISOSORBIDE DINI10 MG PEG; +LISINOPRIL10 MG PO; +NUEDEXTA 20-101 EACH PO; +OMNICEF300 MG PO; +REMERON15 MG PO; +SENNA LAXATIVE8.6 MG PO; +SEROQUEL50 MG PO
[2016-12-04 20:36] LABS: BASOPHILS 0.2 % (0.0-2.0); EOSINOPHILS 0.3 % (0-7); HEMATOCRIT 34.1 % (36.0-48.0); HEMOGLOBIN 10.9 g/dL (12-16); IMMATURE GRANULOCYTES 0.3 % (0-5); LYMPHOCYTES 22.1 % (15-50); MCH 29.1 pg (26.0-34.0); MCV 90.9 fL (80.0-100.0); MEAN PLATELET VOLUME 10.1 fL (7.4-10.4); MONOCYTES 7.2 % (2-11); NEUTROPHILS 69.9 % (40-80); PLATELET COUNT 236 10x3/uL (130-400); RBC 3.75 10x6/uL (4.00-5.40); RDW 14.8 % (11.5-14.5); WBC 9.1 10x3/uL (4.8-10.8)
[2016-12-04 20:43] LABS: CALCIUM 8.4 mg/dL (8.5-10.1); CARBON DIOXIDE 30.7 mmol/L (21.0-32.0); CHLORIDE - SERUM 105 mmol/L (98-107); CREATININE - SERUM 0.6 mg/dL (0.6-1.3); GLUCOSE 100 mg/dL (74-106); SODIUM 141 mmol/L (136-145); eGFR NON AFRICAN AMERICAN > 90 mL/min (90-120)
[2016-12-04 20:45] LABS: INR 2.16 (0.85-1.17); PROTIME 24.1 SECONDS (11.6-15.0)
[2016-12-04 20:46] LABS: APTT 87.6 SECONDS (22.8-39.4); CALC OSMOLALITY 279 mosm/kg (275-300); POTASSIUM - SERUM 4.2 mmol/L (3.5-5.1); UREA NITROGEN 9 mg/dL (7-18)
--- NOTE | 2016-12-04 22:28 | NUR ---
RECEIVED PATIENT TO ROOM VIA STRETCHER. NO SIGNS OF DISTRESS NOTED. ORIENTED TO PERSON. CONFUSED AND YELLING OUT. ATTEMPTED TO ORIENT TO ROOM AND USE OF CALL LIGHT. BED LOW. CALL LIGHT IN REACH .
[2016-12-04 22:51] VITALS: BP 126/58; BMI 19.5
[2016-12-05] VITALS: BP 126/72
[2016-12-05 04:00] VITALS: BP 130/71
--- NOTE | 2016-12-05 07:45 | NUR ---
Received patient lying in bed, alert and oriented to self. Extremities contracted, skin assessed. Patient clean and dry. Dressing to PEG clean dry and intact. No bleeding assessed.
[2016-12-05 09:32] VITALS: BP 117/51
--- NOTE | 2016-12-05 12:00 | NUR ---
Resting with eyes closed, yells out occasionally "momma", clensed up of small bowel movement and urine incont. Repositions. PEG dressing clean, dry and intact with no breakthrough bleeding assessed. Abd. soft.
[2016-12-05 13:42] VITALS: Ht 160 cm; Wt 49.9 kg
[2016-12-05 13:46] VITALS: BP 143/77
--- NOTE | 2016-12-05 14:16 | NUR ---
Nutrition Note: Chart reviewed. When ok with General Surgery rec start TF of Jevity 1.2 @ 20 ml/hr. Advance 10 ml every 6-8 hours as tolerated to goal rate of 45 ml/hr. Water flushes of 25 ml/hr. RD following.
--- NOTE | 2016-12-05 17:53 | NUR ---
Cleansed up of incontinence of stool, repositioned on back. Jevity 1.2 @ 45 infusing without difficulty. Peg with no leaking or bleeding.
[2016-12-05 19:18] VITALS: BP 139/77
[2016-12-05 20:00] VITALS: BP 126/62
[2016-12-06] VITALS: BP 131/70
--- NOTE | 2016-12-06 00:41 | NUR ---
ASSESSED AT THE BEGINNING OF THE SHIFT. SHE IS ALERT AND ABLE TO VERBALIZE NEDS. THE HOB IS AT 30 DEGREES DUE TO TUBE FEEDING WHICH IS GOING ORDERED. SHE IS CONTRACTED BUT MOVES ABOUT THE BED QUITE A BIT. ALL HS MEDS WERE GIVEN VIA G-TUBE AND NO PROBLEMS NOTED. SHE HAD FAMILY AT THE BEDSIDE UNTIL ABOUT 2100. WE WILL BE CHECKING HER FREQUENTLY DUE TO TO HER INCONT. OF BOWEL AND BLADDER. THE BED IS LOW, RAILS UP X'S 2 AND CALL LIGHT AT HAND.
[2016-12-06 04:00] VITALS: BP 149/67
--- NOTE | 2016-12-06 07:00 | NUR ---
REPORT RECIEVED ASSUMED CARE. PATIENT IN BED WITH IV INTACT. NO COMPLAINTS AT THIS TIME. CALL LIGHT WITHIN REACH.
--- NOTE | 2016-12-06 08:45 | NUR ---
ASSESSMENT COMPLETE, VS STABLE. IV INTACT. DRESSING TO PEG SITE CLEAN AND DRY. NO COMPLAINTS AT THIS TIME. LAYING ON SIDE WITH CALL LIGHT WITHIN REACH.
[2016-12-06 09:00] VITALS: BP 130/68
--- NOTE | 2016-12-06 11:46 | NUR ---
CALL TO [facility] AND SPOKE WITH GLENN, INFORMED OF PATIENT DISCHARGE ORDERS. GLENN STATES THAT SHE WILL HAVE TO OBTAIN PRE-AUTH FOR PATIENTS RETURN AND WILL CALL BACK.
--- NOTE | 2016-12-06 12:08 | NUR ---
CALLBACK RECEIVED FROM PATIENTS DAUGHTERDESMOND. QUESTIONS ANSWERED REGARDING LABS, FEEDS, ETC. DAUGHTER STATES THAT RETURN TO [facility] IS OKAY. CALLBACK RECEIVED FROM GLENN [employer] [facility] STATING THAT RETURN HAS BEEN OKAYED BY ADMIN. WILL RETURN VIA [employer].
--- NOTE | 2016-12-06 12:30 | NUR ---
PATIENT REPORT CALLED TO GLENN AT [facility]. PATIENT IV REMOVED WITH CATH TIP INTACT. PEG TUBE INTACT, FLUSHED, NO BLEEDING AT THIS TIME. AWAITING AMBULANCE FOR DC.
== END 2016-12-06 14:51 ==
LOC: D.ER 19:13 → D.MS 21:13 → OBSVTIME 21:13 → D.MS 21:13
PROVIDERS: Emergency Medicine; ADMIT Family Medicine Adult Medicine
DX: K94.21 Gastrostomy hemorrhage (principal); G30.9 Alzheimer's disease, unspecified; F02.81 Dementia in other diseases classified elsewhere, unspecified severity, with behavioral disturbance; F41.9 Anxiety disorder, unspecified; E78.5 Hyperlipidemia, unspecified; I25.10 Atherosclerotic heart disease of native coronary artery without angina pectoris; H40.9 Unspecified glaucoma

== ENCOUNTER 2017-01-03 19:00 | Emergency (ER) | payer MEDICARE ==
--- NOTE | 2017-02-03 09:43 | OP ---
PATIENT NAME: AGUSTO QUARLES MEDICAL RECORD: [id number] :31 LOCATION:. ADMISSION DATE: SURGEON: HECTOR MCNULTY MD DATE OF OPERATION: 01/03/2017 PREOPERATIVE DIAGNOSIS: Malfunctioning (clogged) G-tube. POSTOPERATIVE DIAGNOSIS: Malfunctioning (clogged) G-tube. PROCEDURE: G-tube change out. SURGEON: Hector Mcnulty MD. EXPERIMENTAL MECHANIC SPACECRAFT: None. BLOOD LOSS: Minimal. ANESTHESIA: None. COMPLICATIONS: None. The entire procedure was performed with the presence of a female nurse. The indwelling gastrostomy tube, which was a flange type of gastrostomy tube was removed in its entirety. I tested the balloon on a replacement 20-Yoruba gastrostomy tube. There was no leakage. It was well lubricated and advanced down through the gastrocutaneous stoma. It was inflated. I pushed the flange down against the anterior abdominal wall. We are going to obtain a Gastrografin KUB. If this demonstrates adequate placement of the gastrostomy tube, she can be dismissed back to the half-way and the G-tube can be utilized immediately. TRANSINT:[id number] Voice Confirmation ID: [id number] DOCUMENT ID: [id number] HECTOR MCNULTY MD at 0943 CC: [id number] DICTATION DATE: 01/03/172046 THERMOSCREW OPERATOR: 01/03/172135 [facility] ER 01/03/17 [place] [id number]
--- NOTE | 2017-02-03 09:43 | HP ---
PATIENT: AGUSTO QUARLES MEDICAL RECORD: [id number] ACCOUNT: [id number] LOCATION:[facility] : 31 ADMISSION DATE: 01/03/17 HISTORY AND PHYSICAL EXAMINATION CHIEF COMPLAINT: Malfunctioning of PEG tube. HISTORY OF PRESENT ILLNESS: The patient has a PEG tube, which is clogged. She was seen over to [facility]. PEG tube has been in for a few weeks. They preferred that she will be transferred over here to have the PEG tube changed out. The risks, possible complications and alternatives to procedure were explained to the patient. She is accompanied by her . This is a patient of [facility]. PAST MEDICAL AND SURGICAL HISTORY: Congestive heart failure, urinary tract infections, respiratory insufficiency, bleeding from PEG site, PEG tube insertion, pacemaker insertion, hypertension, elevated INR, dementia, altered mental status, acute; hypercholesterolemia, also heart rhythm abnormality. ALLERGIES: CODEINE, SULFA, ASPIRIN, AND PENICILLIN. HOME MEDICINES: Isosorbide, eyedrops, Omnicef, Seroquel, Remeron, Megace, Nuedexta, and pravastatin. REVIEW OF SYSTEMS: Negative for night sweats or weight loss. Negative for anorexia. Negative for fever. SOCIAL HISTORY: Nonsmoker. REVIEW OF SYSTEMS: Limited due to the patient's dementia. PHYSICAL EXAMINATION: GENERAL: The patient appears acutely ill. She also appears chronically ill. VITAL SIGNS: Reviewed. The entire physical examination was performed with the presence of a female nurse. HEAD: External ears appear normal. EYES: Extraocular movements are intact. NECK: Trachea is midline. CHEST: No intercostal retractions. PULMONARY: Nonlabored. ABDOMEN: Indwelling G-tube which is clogged in the left upper quadrant. EXTREMITIES: She has extremity flexion contractures. IMPRESSION: Malfunctioning (clogged) G-tube. PLAN: G-tube change at the bedside. TRANSINT:[id number] Voice Confirmation ID: [id number] DOCUMENT ID: [id number] HISTORY AND PHYSICAL [id number] AGUSTO QUARLES ROBERT MD at 0943 CC: [id number] DICTATION DATE: 01/03/172031 KEYBOARD INSTRUMENT REPAIRER: 01/03/17 215 [facility] ER 01/03/17 [place] [id number]
== END 2017-01-03 22:40 | disposition home or self-care (01) ==
LOC: D.ER 19:00
DX: K94.29 Other complications of gastrostomy (principal); F03.90 Unspecified dementia, unspecified severity, without behavioral disturbance, psychotic disturbance, mood disturbance, and anxiety; I10 Essential (primary) hypertension; I50.9 Heart failure, unspecified; Z95.0 Presence of cardiac pacemaker

== ENCOUNTER 2017-01-09 15:14 | Inpatient (IN) | payer MEDICARE ==
[~2017-01-09] VITALS: Ht 160 cm; Wt 41.0 kg
[2017-01-09 16:01] LABS: BASOPHILS 0.2 % (0.0-2.0); EOSINOPHILS 0.3 % (0-7); HEMATOCRIT 36.7 % (36.0-48.0); HEMOGLOBIN 11.9 g/dL (12-16); IMMATURE GRANULOCYTES 0.2 % (0-5); MCH 30.4 pg (26.0-34.0); MCHC 32.4 g/dL (31.0-37.0); MCV 93.6 fL (80.0-100.0); MEAN PLATELET VOLUME 11.3 fL (7.4-10.4); MONOCYTES 8.8 % (2-11); NEUTROPHILS 77.5 % (40-80); PLATELET COUNT 206 10x3/uL (130-400); RBC 3.92 10x6/uL (4.00-5.40); RDW 16.2 % (11.5-14.5); WBC 12.2 10x3/uL (4.8-10.8)
[2017-01-09 16:03] LABS: APPEARANCE HAZY (CLEAR); COLOR YELLOW (YELLOW)
[2017-01-09 16:05] LABS: BACTERIA MODERATE /hpf (NONE SEEN); BILIRUBIN NEGATIVE (NEGATIVE); EPITHELIAL CELLS 0-5 /hpf (0-5); GLUCOSE NEGATIVE (NEGATIVE); KETONE NEGATIVE (NEGATIVE); LEUKOCYTE ESTERASE 2+ (NEGATIVE); NITRITE NEGATIVE (NEGATIVE); PROTEIN TRACE mg/dL (NEGATIVE); RED CELLS - URINE 0-5 /hpf (0-5); UROBILINOGEN NORMAL (NORMAL); WHITE CELLS - URINE >50 /hpf (0-5); YEAST <1+ /hpf (NONE SEEN)
[2017-01-09 16:18] LABS: ALBUMIN 2.9 g/dL (3.4-5.0); ALCOHOL - BLOOD (MEDICAL) < 3.0 mg/dL (0.0-10.0); ALKALINE PHOSPHATASE 72 U/L (46-116); ALT (SGPT) 22 U/L (10-68); BILIRUBIN - TOTAL 0.45 mg/dL (0.2-1.3); CALC OSMOLALITY 275 mosm/kg (275-300); CALCIUM 8.6 mg/dL (8.5-10.1); CARBON DIOXIDE 28.2 mmol/L (21.0-32.0); CHLORIDE - SERUM 100 mmol/L (98-107); CREATININE - SERUM 0.7 mg/dL (0.6-1.3); GLUCOSE 101 mg/dL (74-106); POTASSIUM - SERUM 4.1 mmol/L (3.5-5.1); PROTEIN - SERUM 7.6 g/dL (6.4-8.2); SODIUM 135 mmol/L (136-145); UREA NITROGEN 29 mg/dL (7-18); eGFR NON AFRICAN AMERICAN 85 mL/min (90-120)
[2017-01-09 16:26] LABS: UDS - AMPHET NEGATIVE QUAL (NEGATIVE); UDS - BARB NEGATIVE QUAL (NEGATIVE); UDS - BENZO NEGATIVE QUAL (NEGATIVE); UDS - COCAINE NEGATIVE QUAL (NEGATIVE); UDS - METH NEGATIVE QUAL (NEGATIVE); UDS - OPIATE NEGATIVE QUAL (NEGATIVE); UDS - PCP NEGATIVE QUAL (NEGATIVE); UDS - THC NEGATIVE QUAL (NEGATIVE)
[2017-01-09] MEDS ORDERED: OCUFLOX 0.3 % OP5 ML EACH EYE (21:02)
[2017-01-09] MEDS ORDERED: ARGININE1 GM PO (21:04)
[2017-01-09] MEDS ORDERED: THEREMS-M1 TAB PO (21:05)
[2017-01-09] MEDS ORDERED: ASCORBIC ACID500 MG PO (21:08)
[2017-01-09] MEDS ORDERED: NUEDEXTA 20-101 EACH PO (21:10)
[2017-01-09] MEDS ORDERED: TUSSIONEX PENN473 ML PO (21:11)
[2017-01-09] MEDS ORDERED: VITAMIN D31000 UNIT PO (21:15)
[2017-01-09] MEDS ORDERED: ACIDOPHILUS LAC1 CAP PO (21:18)
[2017-01-09] MEDS ORDERED: DEPAKENE 2250 MG/5 M PO (21:21)
[2017-01-09] MEDS ORDERED: MIRALAX17 GM PO (21:22)
[2017-01-09 22:49] VITALS: BP 104/46; BMI 16.0
[2017-01-10] VITALS: BP 102/37
--- NOTE | 2017-01-10 00:09 | NUR ---
Patient recieved from [facility], admit assessment done by this nurse, bed in low locked position, call light and water in reach, patient denies needs, CPOC.
[2017-01-10 04:00] VITALS: BP 135/47
[2017-01-10 06:58] LABS: BASOPHILS 0.2 % (0.0-2.0); EOSINOPHILS 0.2 % (0-7); HEMATOCRIT 35.8 % (36.0-48.0); HEMOGLOBIN 11.6 g/dL (12-16); IMMATURE GRANULOCYTES 0.3 % (0-5); LYMPHOCYTES 17.7 % (15-50); MCH 30.5 pg (26.0-34.0); MCHC 32.4 g/dL (31.0-37.0); MCV 94.2 fL (80.0-100.0); MEAN PLATELET VOLUME 11.4 fL (7.4-10.4); NEUTROPHILS 72.6 % (40-80); PLATELET COUNT 193 10x3/uL (130-400); RDW 16.4 % (11.5-14.5)
--- NOTE | 2017-01-10 07:35 | NUR ---
SLEEPING, BREATHING EVEN AND UNLABORED, CALL LIGHT IN REACH, WILL CONTINUE TO MONITOR
[2017-01-10 07:43] LABS: CALC OSMOLALITY 274 mosm/kg (275-300); CALCIUM 8.4 mg/dL (8.5-10.1); CARBON DIOXIDE 25.9 mmol/L (21.0-32.0); CHLORIDE - SERUM 102 mmol/L (98-107); CREATININE - SERUM 0.6 mg/dL (0.6-1.3); GLUCOSE 81 mg/dL (74-106); MAGNESIUM - SERUM 1.8 mg/dL (1.8-2.4); POTASSIUM - SERUM 3.8 mmol/L (3.5-5.1); SODIUM 136 mmol/L (136-145); UREA NITROGEN 23 mg/dL (7-18); eGFR NON AFRICAN AMERICAN > 90 mL/min (90-120)
[2017-01-10 10:07] VITALS: BP 117/45
[2017-01-10 12:50] VITALS: BP 101/41
[2017-01-10 17:17] VITALS: BP 109/56
[2017-01-10 19:00] VITALS: BP 102/54
[2017-01-11] VITALS: BP 98/40
--- NOTE | 2017-01-11 02:15 | NUR ---
EYES CLOSED RESPIRATIONS WITH EASE AND UNLABORED.
--- NOTE | 2017-01-11 02:35 | NUR ---
NURSE IN ROOM STARTING IV AT THIS TIME. SIDE RAILS X 2. BED LOW. BED ALARM ON. CALL LIGHT IN REACH.
--- NOTE | 2017-01-11 02:37 | NUR ---
20G PIV D/C IN RIGHT WRIST, 20G PIV STARTED IN RIGHT AC.
[2017-01-11 04:00] VITALS: BP 95/63
[2017-01-11 06:07] LABS: BASOPHILS 0.1 % (0.0-2.0); EOSINOPHILS 0.2 % (0-7); HEMATOCRIT 33.8 % (36.0-48.0); HEMOGLOBIN 10.9 g/dL (12-16); IMMATURE GRANULOCYTES 0.2 % (0-5); LYMPHOCYTES 16.9 % (15-50); MCH 29.9 pg (26.0-34.0); MCHC 32.2 g/dL (31.0-37.0); MCV 92.9 fL (80.0-100.0); MEAN PLATELET VOLUME 11.2 fL (7.4-10.4); MONOCYTES 10.3 % (2-11); NEUTROPHILS 72.3 % (40-80); PLATELET COUNT 190 10x3/uL (130-400); RBC 3.64 10x6/uL (4.00-5.40); RDW 16.2 % (11.5-14.5); WBC 8.9 10x3/uL (4.8-10.8)
[2017-01-11 06:26] LABS: CALC OSMOLALITY 272 mosm/kg (275-300); CALCIUM 8.3 mg/dL (8.5-10.1); CARBON DIOXIDE 25.9 mmol/L (21.0-32.0); CHLORIDE - SERUM 100 mmol/L (98-107); CREATININE - SERUM 0.6 mg/dL (0.6-1.3); GLUCOSE 74 mg/dL (74-106); POTASSIUM - SERUM 4.1 mmol/L (3.5-5.1); SODIUM 135 mmol/L (136-145); UREA NITROGEN 24 mg/dL (7-18); eGFR NON AFRICAN AMERICAN > 90 mL/min (90-120)
[2017-01-11 08:39] VITALS: BP 110/58
--- NOTE | 2017-01-11 10:47 | NUR ---
Patient Name: AGUSTO QUARLES Admission Status: ER Accout number: [id number] Admission Date: 01-09-2017 : 1935 Admission Diagnosis: Attending: SLAVA Current LOS: 2 Anticipated DC Date: 01-14-2017 Planned Disposition: Nursing Facility [facility] Cert Primary Insurance: MEDICARE A & B Discharge Planning Comments: CM CALLED PATIENTS DAUGHTER (DESMOND) NO ANSWER. CM CALLED [facility] AND SPOKE WITH PATIENTS NURSE (BULMARO). BULMARO STATED PATIENT IS IN BED MOST OF DAY. WHEN PATIENT IS IN WHEELCHAIR SHE SCREAMS TO GET OUT OF IT AND BACK TO BED. PATIENT HAS A PEG TUBE AND IS NPO PER LIDIA. PATIENTS PCP IS DR. BERT HOLLINS AND PHARMACY IS IN HOUSE. PATIENTS DAUGHTER OR DAUGHTERS BOYFRIEND VISITS DAILY PER BULMARO. CM WILL CONTINUE TO FOLLOW PATIENT WITH D/C NEEDS AND PLANS. PCP DR. BERT HOLLINS IN HOUSE PHARMACY [facility] - [phone] DESMOND VALDEZ (DAUGHTER) [phone] Instrument Tester: Clau Vinson Is the patient Alert and Oriented? No 0 * How many steps to enter\exit or inside your home? 0 0 * PCP DR. BERT HOLLINS 0 * Pharmacy IN HOUSE AT FACILITY 0 * Preadmission Environment [facility] 0 * Facility Name [facility] 0 * ADLs Total Dependent 0 * Equipment Wheelchair 0 * Other Equipment FACILITY HAS NEEDED EQUIPMENT 0 * List name and contact numbers for known caregivers / representatives who currently or will assist patient after discharge: DESMOND VALDEZ (DAUGHTER)[phone] 0 * Community resources currently utilized None 0 * Additional services required to return to the preadmission environment? Yes 0 * Can the patient safely return to the preadmission environment? Yes 0 * Has this patient been hospitalized within the prior 30 days at any hospital? No 0 Grand Total: 0
--- NOTE | 2017-01-11 13:20 | NUR ---
PT IN FOR PNEUMONIA PT RECEIVING IV ANTIBIOTIC IV PATENT AND IN RIGHT AC. PT ASLEEP IN BED AT THIS TIME. SRX2 CALL LIGHT WITHIN REACH WILL CONTINUE TO MONITOR
[2017-01-11 15:23] VITALS: BP 105/51
[2017-01-11 15:45] VITALS: Ht 160 cm; Wt 41.0 kg
--- NOTE | 2017-01-11 19:25 | NUR ---
PT RECEIVED LYING IN BED WITH EYES OPEN. NO SIGN/SYMPTOMS OF DISTRESS NOTED. TUBE FEEDING RUNNING AT 15ML/HR. TOLERATING WELL AT THIS TIME. NO CONCERNS NOTED AT THIS TIME. WILL CONTINUE TO OBSERVE. CALL LIGHT IN REACH.
[2017-01-11 20:00] VITALS: BP 100/61
--- NOTE | 2017-01-11 23:48 | NUR ---
PT IN BED WITH EYES OPEN. HEAD OF BED AT 30 DEGREES. RECEIVED MEDICATIONS VIA PEG TUBE. TOLERATED WELL. TUBE FEEDING CONTINUES AT 15ML/HR AT THIS TIME, TOLERATING WELL. WILL CONTINUE TO OBSERVE. CALL LIGHT IN REACH.
[2017-01-12] VITALS (7 sets, daily range): BP systolic 97–136; BP diastolic 44–57
--- NOTE | 2017-01-12 02:50 | NUR ---
PT IN BED WITH EYES CLOSED AND CHEST RISING. HEAD OF BED AT 30 DEGREES. CONTINUES TUBE FEEDING WITHOUT DIFFICULTY AT THIS TIME. WILL CONTINUE TO OBSERVE. CALL LIGHT IN REACH.
[2017-01-12 07:17] LABS: BASOPHILS 0.1 % (0.0-2.0); EOSINOPHILS 0.1 % (0-7); HEMOGLOBIN 11.9 g/dL (12-16); IMMATURE GRANULOCYTES 0.2 % (0-5); LYMPHOCYTES 9.6 % (15-50); MCH 30.3 pg (26.0-34.0); MCHC 32.2 g/dL (31.0-37.0); MCV 94.1 fL (80.0-100.0); MEAN PLATELET VOLUME 11.6 fL (7.4-10.4); MONOCYTES 11.4 % (2-11); NEUTROPHILS 78.6 % (40-80); PLATELET COUNT 172 10x3/uL (130-400); RBC 3.93 10x6/uL (4.00-5.40); WBC 8.7 10x3/uL (4.8-10.8)
--- NOTE | 2017-01-12 08:16 | NUR ---
PT ASSESSMENT COMPLETE AWAKE AND ALERT ORINETD X 3 LUNGS CLEAR BILAT PEG PATENT TO JEVITY PER ORDER INCREASED AT 0600 TO 25 ML/HR TOLERATING WELL. PT RESTING QUIETLY AT THIS TIME. BSA X 4 MEPLIX NOTED TO COCCYX WILL ASSESS NEEDED.
[2017-01-12 08:58] LABS: CALC OSMOLALITY 269 mosm/kg (275-300); CALCIUM 8.4 mg/dL (8.5-10.1); CARBON DIOXIDE 26.7 mmol/L (21.0-32.0); CHLORIDE - SERUM 98 mmol/L (98-107); CREATININE - SERUM 0.7 mg/dL (0.6-1.3); GLUCOSE 135 mg/dL (74-106); MAGNESIUM - SERUM 1.8 mg/dL (1.8-2.4); PHOSPHOROUS 3.8 mg/dL (2.5-4.9); POTASSIUM - SERUM 3.6 mmol/L (3.5-5.1); SODIUM 133 mmol/L (136-145); UREA NITROGEN 18 mg/dL (7-18); eGFR NON AFRICAN AMERICAN 85 mL/min (90-120)
--- NOTE | 2017-01-12 14:10 | NUR ---
OT NOTE: PERFORMED PROM TODAY; L SIDE REMAINS TIGHT, HOWEVER, PT DID NOT CRY OUT DURING PROM SHE DID YESTERDAY. PT WITH LIMITED VERBALIZATION
--- NOTE | 2017-01-12 15:48 | NUR ---
PT CONFUSED RESP EVEN AND NONLABORED IV TO RIGHT AC PATENT AND INTACT. PEG TUBE PATENT AND INTACT IN LEFT LOWER QUADRANT. PT IN FOR PNUEMONIA WITH TREATMENT OF IV ANTIBIOTICS. SRX2 CALL LIGHT WITHIN REACH BED AT LOWEST SETTING
--- NOTE | 2017-01-12 16:29 | NUR ---
PT TOLERATEING TUBE FEEDING WELL NO ACUTE DISTRESS NOTED VOICES ALL NEEDS TO STAFF
--- NOTE | 2017-01-12 19:20 | NUR ---
PT RECEIVED LYING IN BED RESTING QUIETLY AT THIS TIME. AWAKE. CONFUSED TO TIME, PLACE, AND SITUATION. IV NOTED TO RIGHT A/C S/L. DRESSING CDI. HEART RRR. LUNG SOUNDS CLEAR BILATERALLY. BOWEL SOUNDS ACTIVE X4 QUADRENTS. ABDOMEN SOFT NON-DISTENDED. MEPILEX NOTED TO COCCYX AT THIS TIME. AREA REDDENED. PEDAL PULSES EQUAL BILATERALLY. PT DENIES PAIN AT THIS TIME. DENIES NEEDS. BED LOW. PHONE AND CALL LIGHT IN REACH. SRX2.
--- NOTE | 2017-01-12 21:19 | NUR ---
PM MEDS GIVEN VIA PEG TUBE AT THIS TIME. PT TOLERATED WELL. DENIES NEEDS AT THIS TIME. BED LOW. PHONE AND CALL LIGHT IN REACH SRX2.
--- NOTE | 2017-01-12 22:32 | NUR ---
PT RESTING QUIETLY AT THIS TIME WITH EYES CLOSED. RESPIRATIONS EVEN, NON-LABORED. NO ACUTE DISTRESS NOTED AT THIS TIME. BED LOW. PHONE AND CALL LIGHT IN REACH. SRX2.
--- NOTE | 2017-01-13 02:00 | NUR ---
PT RESTING QUIETLY AT THIS TIME WITH EYES CLOSED. AROUSED EASILY. PT DENIES NEEDS AT THIS TIME. BED LOW. PHONE AND CALL LIGHT IN REACH. SRX2.
--- NOTE | 2017-01-13 03:45 | NUR ---
PT RESTING QUIETLY AT THIS TIME WTIH EYES CLOSED. RESPIRATIONS EVEN, NON-LABORED. NO ACUTE DISTRESS NOTED AT THIS TIME. BED LOW. P[NURA AND CALL LIGHT IN REACH. SRX2.
[2017-01-13 04:01] VITALS: BP 98/58
[2017-01-13 05:24] LABS: BASOPHILS 0.3 % (0.0-2.0); EOSINOPHILS 0.3 % (0-7); HEMATOCRIT 34.4 % (36.0-48.0); HEMOGLOBIN 11.1 g/dL (12-16); IMMATURE GRANULOCYTES 0.1 % (0-5); LYMPHOCYTES 20.2 % (15-50); MCH 30.2 pg (26.0-34.0); MCHC 32.3 g/dL (31.0-37.0); MCV 93.5 fL (80.0-100.0); MEAN PLATELET VOLUME 11.1 fL (7.4-10.4); MONOCYTES 12.3 % (2-11); NEUTROPHILS 66.8 % (40-80); PLATELET COUNT 195 10x3/uL (130-400); RBC 3.68 10x6/uL (4.00-5.40); RDW 15.8 % (11.5-14.5)
[2017-01-13 05:35] LABS: CALC OSMOLALITY 275 mosm/kg (275-300); CALCIUM 8.2 mg/dL (8.5-10.1); CARBON DIOXIDE 28.6 mmol/L (21.0-32.0); CHLORIDE - SERUM 99 mmol/L (98-107); CREATININE - SERUM 0.7 mg/dL (0.6-1.3); GLUCOSE 120 mg/dL (74-106); MAGNESIUM - SERUM 2.2 mg/dL (1.8-2.4); PHOSPHOROUS 3.1 mg/dL (2.5-4.9); POTASSIUM - SERUM 4.1 mmol/L (3.5-5.1); SODIUM 137 mmol/L (136-145); UREA NITROGEN 16 mg/dL (7-18); eGFR NON AFRICAN AMERICAN 85 mL/min (90-120)
--- NOTE | 2017-01-13 06:19 | NUR ---
INCREASED PEG TUBE FEEDING TO 45 CC/HR AT THIS TIME. RADIOLOGY IN ROOM WITH PT. NO NEEDS. NOTED BED LOW. PHONE AND CALL LIGHT IN REACH. SRX2.
--- NOTE | 2017-01-13 08:09 | NUR ---
PT ASSESSMENT COMPLETE AWAKE AND ALERT ORIENTED TO NAME ONLY PT AROUSES TO VEBAL STIMULI. PEG FEEDING AT 45 ML HR VIA PUMP TOLERATING WELL LESS THAN 10 CC RESIDUAL NOTED. DRESSING IN PLACE TO PEG SITE. NOTED TO HAVE MEPLIX TO REDDENED AREA TO COCCYX. CALL LIGGHT IN REACH SIDE RAILS UP X 2
[2017-01-13 08:23] VITALS: BP 127/79
[2017-01-13 13:05] VITALS: BP 116/56
--- NOTE | 2017-01-13 13:39 | NUR ---
OT NOTE: PT WITH IMPROVED VERBAIZATION TODAY. REMAINS VERY CONFUSED AND DISORIENTED. ATTEMPTED GROOMING TASKS AND UE DRESSING, HOWEVER, PT BECAME INCREASINGLY AGITATED WITH THESE ATTEMPTS...ASSISTED WITH ST HE WAS PERFORMING A BED SIDE SWALLOW, HOWEVER, PT REFUSED TO ATTEMPT TO HOLD UTENSIL OR CUP . PT WITH EXTENSIVE COMPLAINTS OF DIZZINESS WHILE ROLLING FROM SIDE TO SIDE ( CLEANED PT SHE HAD A BM )..PT REPORTED THAT SHE FELT THOUGH SHE WAS FALLING; UNABLE TO GET HER IN UPRIGHT POSITION BECAUSE OF THIS
--- NOTE | 2017-01-13 15:16 | NUR ---
NUTRITION MONITORING & EVAL CHART REVIEWED. PT VISIT. PT STATES "I NEED SOMEONE TO TALK TO", OBLIGED FOR SHORT PERIOD OF TIME. TOLERATING JEVITY 1.5 @ GOAL RATE 45 CC/HR. RD FOLLOWING
[2017-01-13 16:12] VITALS: BP 132/63
--- NOTE | 2017-01-13 17:44 | NUR ---
OT NOTE: PT COMPLETED BUE AAROM TO DECREASE RISK OF CONTRACTURE AND SKIN BREAKDOWN. PT COMPLETED ORAL HYGIENE WITH LISSY WITH LUAN Baker THANK YOU, CHRISTINA CANAS/Jaya
[2017-01-13 19:00] VITALS: BP 113/67
--- NOTE | 2017-01-14 00:34 | NUR ---
REC'D PATIENT LYING IN BED. ALERT AND ORIENTED X1. DENIES PAIN AT THIS TIME. IS IRRITABLE. NO DISTRESS NOTED. DENIES FURTHER NEEDS AT THIS TIME. JEVITY PUMP IS RUNNING AT 45 AND IS FLUSHING. WILL ADMINISTER PRESCRIBED MEDS ORDERED. BED LOW, LOCKED, CALL LIGHT IN REACH, ALARM ON.
--- NOTE | 2017-01-14 03:05 | NUR ---
PATIENT IS RESTING IN BED. NO DISTRESS NOTED. DENIES PAIN AT THIS TIME. INSTRUCTED TO CALL IF NEEDED ANYTHING. BED LOW, LOCKED, CALL LIGHT IN REACH, ALARM ON.
[2017-01-14 04:00] VITALS: BP 123/55
[2017-01-14 05:39] LABS: BASOPHILS 0.2 % (0.0-2.0); EOSINOPHILS 0.6 % (0-7); HEMOGLOBIN 11.2 g/dL (12-16); IMMATURE GRANULOCYTES 0.2 % (0-5); LYMPHOCYTES 16.9 % (15-50); MCH 30.6 pg (26.0-34.0); MCHC 32.9 g/dL (31.0-37.0); MCV 92.9 fL (80.0-100.0); MEAN PLATELET VOLUME 10.9 fL (7.4-10.4); MONOCYTES 10.8 % (2-11); NEUTROPHILS 71.3 % (40-80); PLATELET COUNT 225 10x3/uL (130-400); RBC 3.66 10x6/uL (4.00-5.40); RDW 15.8 % (11.5-14.5); WBC 5.4 10x3/uL (4.8-10.8)
[2017-01-14 05:48] LABS: CALC OSMOLALITY 278 mosm/kg (275-300); CALCIUM 8.2 mg/dL (8.5-10.1); CHLORIDE - SERUM 101 mmol/L (98-107); CREATININE - SERUM 0.6 mg/dL (0.6-1.3); GLUCOSE 133 mg/dL (74-106); POTASSIUM - SERUM 3.6 mmol/L (3.5-5.1); SODIUM 138 mmol/L (136-145); UREA NITROGEN 14 mg/dL (7-18); eGFR NON AFRICAN AMERICAN > 90 mL/min (90-120)
--- NOTE | 2017-01-14 06:04 | NUR ---
PATIENT IS RESTING IN BED. NO DISTRESS NOTED. DENIED PAIN AT THIS TIME. DENIED FURTHER NEEDS AT THIS TIME. CHANGED OUT HER PEG BAGS @ 0200. BED LOW, LOCKED, CALL LIGHT IN REACH, ALARM ON.
--- NOTE | 2017-01-14 08:01 | NUR ---
PT ASSESSMENT COMPLETE AWAKE AND ALERT CONFUSED TO TIME PLACE AND SITUATION PT AWARE OF SURROUNDINGS CLEANED OF INCT STOOL. PEG PATENT TO [facility] PER ORDER. TOLERATES WELL. MEPLIX TO COCCYX IN PLACE CORNOERS NOT PEELING. WILL MONITOR TOTAL CARE PER STAFF
[2017-01-14 09:29] VITALS: BP 146/81
--- NOTE | 2017-01-14 12:23 | NUR ---
RESTING QUIETLY IN BED WITH EYES CLOSED. FEEDING VIA PEG PATENT AT THIS TIME.
[2017-01-14 12:58] VITALS: BP 140/62
--- NOTE | 2017-01-14 13:26 | NUR ---
OT NOTE: PT REMAINS A AND O X 1; PT LESS COOPERATIVE TODAY; VERY RESISTANT TO MOVEMENT INCLUDING PROM TO L UE AND LE; REPOSITIONED PT ON HER SIDE;;REFUSED TO ATTEMPT ANY FEEDING TASKS; WOULD NOT DRINK FROM CUP
--- NOTE | 2017-01-14 14:28 | NUR ---
HOB UP 35 DEGREES PEG PATENT TO JEVITY 1.5 AT 45 CC HR. RESTING QUIETLY TURNED EVERY 2 HRS NEEDED.
[2017-01-14 16:21] VITALS: BP 139/54
--- NOTE | 2017-01-14 18:57 | NUR ---
PT RESTING WELL WITH NO DISTRSS NOTED FEEDING TUBE PATENT TO JEVITY 1.5 AT 45 ML/HR. TOLERATING WELL.
--- NOTE | 2017-01-14 19:30 | NUR ---
PT RECEIVED RESTING IN BED WITH EYES CLOSED. NO S/S OF DISTRESS NOTED. AROUSES TO VERBAL STIMULI. PT ALERT AND ORIENTED TO PERSON ONLY. DENIES PAIN AT THIS TIME. PEG TUBE NOTED TO BE PATENT. CALL LIGHT IN PT REACH. BED IN LOW POSITION. SIDE RAILS UP X2.
[2017-01-14 20:01] VITALS: BP 100/48
[2017-01-15] VITALS: BP 113/67
[2017-01-15 04:00] VITALS: BP 122/55
--- NOTE | 2017-01-15 04:37 | NUR ---
PT LYING IN BED RESTING, EYES CLOSED. RESPIRATION EVEN, UNLABORED. NO DISTRESS NOTED. CONTINUE WEEKDAY BABYSITTER'S PLAN OF CARE.
[2017-01-15 06:19] LABS: BASOPHILS 0.2 % (0.0-2.0); HEMATOCRIT 35.4 % (36.0-48.0); HEMOGLOBIN 11.5 g/dL (12-16); IMMATURE GRANULOCYTES 0.2 % (0-5); LYMPHOCYTES 24.5 % (15-50); MCH 30.3 pg (26.0-34.0); MCHC 32.5 g/dL (31.0-37.0); MCV 93.2 fL (80.0-100.0); MEAN PLATELET VOLUME 10.4 fL (7.4-10.4); NEUTROPHILS 62.1 % (40-80); PLATELET COUNT 230 10x3/uL (130-400); RDW 15.9 % (11.5-14.5); WBC 5.9 10x3/uL (4.8-10.8)
[2017-01-15 06:46] LABS: ALBUMIN 2.5 g/dL (3.4-5.0); ALKALINE PHOSPHATASE 73 U/L (46-116); ALT (SGPT) 16 U/L (10-68); CALC OSMOLALITY 274 mosm/kg (275-300); CALCIUM 8.8 mg/dL (8.5-10.1); CARBON DIOXIDE 31.2 mmol/L (21.0-32.0); CHLORIDE - SERUM 101 mmol/L (98-107); CREATININE - SERUM 0.6 mg/dL (0.6-1.3); GLUCOSE 109 mg/dL (74-106); POTASSIUM - SERUM 3.6 mmol/L (3.5-5.1); PROTEIN - SERUM 7.1 g/dL (6.4-8.2); SODIUM 137 mmol/L (136-145); UREA NITROGEN 13 mg/dL (7-18); eGFR NON AFRICAN AMERICAN > 90 mL/min (90-120)
--- NOTE | 2017-01-15 07:30 | NUR ---
RECIEVED PT DURING WALKING ROUNDS. PT RESTING IN BED WITH NO VISABLE SIGNS OF PAIN OR DISCOMFORT AT THIS TIME. ASSESSMENT DONE PER FLOWSHEET. BED IN LOW POSITION AND CALL LIGHT WITHIN REACH. WILL CONTINUE TO MONITOR.
[2017-01-15 07:57] VITALS: BP 116/69
[2017-01-15 11:10] VITALS: BP 100/47
--- NOTE | 2017-01-15 11:39 | NUR ---
OT NOTE: PT MORE AGITATED TODAY; ATTEMPTED PROM AND POSITIONING WITH R HAND, HOWEVER, PT CONTINUALLY HITTING AT THERAPIST AND YELLING ," NO!!! IT HURTS!! UNABLE TO REDIRECT OR DISTRACT PT
--- NOTE | 2017-01-15 12:00 | NUR ---
patient in mid holman position resting with eyes closed. respirations even and unlabored. side rails up x2. bed in low postion. call light in reach.
[2017-01-15] MEDS ORDERED: LEVAQUIN500 MG PO (12:18)
--- NOTE | 2017-01-15 12:58 | NUR ---
CM REASSESSMENT NOTE: PATIENT IS DISCHARGING BACK TO [place] [facility] & BY AMBULANCE TO A SKILLED BED TODAY.
--- NOTE | 2017-01-15 14:15 | NUR ---
IV REMOVED AT THIS TIME, CATH INTACT. PT PICKED UP BY AMBULANCE AND TAKEN TO [place]. REPORT CALLED TO LIDIA PALOMINO LPN.
--- NOTE | 2017-01-15 16:17 | NUR ---
OT NOTE: PT COMPLETED SIMPLE HYGIENE TASK WITH MOD A. PT COMPLETED BUE AAROM FOR INCREASED ROM AND DECREASE RISK OF SKIN BREAKDOWN. THANK YOU, CHRISTINA CANAS/Jaya
== END 2017-01-15 16:12 | DRG 193 ==
LOC: D.ER 15:14 → D.MS 17:56
PROVIDERS: Emergency Medicine; Family Medicine; Physician Assistant; ADMIT Emergency Medicine
DX: J18.9 Pneumonia, unspecified organism (principal); G93.40 Encephalopathy, unspecified; R53.2 Functional quadriplegia; E43 Unspecified severe protein-calorie malnutrition; I50.30 Unspecified diastolic (congestive) heart failure; F02.81 Dementia in other diseases classified elsewhere, unspecified severity, with behavioral disturbance; N39.0 Urinary tract infection, site not specified; Z68.1 Body mass index [BMI] 19.9 or less, adult; I11.0 Hypertensive heart disease with heart failure; Z95.0 Presence of cardiac pacemaker; G30.9 Alzheimer's disease, unspecified; F41.9 Anxiety disorder, unspecified; L89.152 Pressure ulcer of sacral region, stage 2; D64.9 Anemia, unspecified; I08.1 Rheumatic disorders of both mitral and tricuspid valves

== ENCOUNTER 2017-01-25 21:43 | Emergency (ER) | payer MEDICARE ==
[2017-01-11 15:45] VITALS: BMI 15.9
[~2017-01-25 21:43] MED LIST changes: +ARGININE1 GM PO; +ASCORBIC ACID500 MG PO; +DEPAKENE 2250 MG/5 M PO; +LEVAQUIN500 MG PO; +MIRALAX17 GM PO; +OCUFLOX 0.3 % OP5 ML EACH EYE; +THEREMS-M1 TAB PO; +TUSSIONEX PENN473 ML PO
== END 2017-01-25 23:30 | disposition home or self-care (01) ==
LOC: D.ER 21:43
DX: K94.29 Other complications of gastrostomy (principal); F03.90 Unspecified dementia, unspecified severity, without behavioral disturbance, psychotic disturbance, mood disturbance, and anxiety; I10 Essential (primary) hypertension; Z95.0 Presence of cardiac pacemaker

== ENCOUNTER 2017-03-02 22:02 | Emergency (ER) | payer MEDICARE ==
[2017-01-11 15:45] VITALS: BMI 15.9
== END 2017-03-03 00:41 | disposition home or self-care (01) ==
LOC: D.ER 22:02
DX: Z43.1 Encounter for attention to gastrostomy (principal)

== ENCOUNTER 2017-05-01 20:29 | Emergency (ER) | payer MEDICARE ==
[2017-01-11 15:45] VITALS: BMI 15.9
== END 2017-05-02 01:40 | disposition home or self-care (01) ==
LOC: D.ER 20:29
DX: K94.29 Other complications of gastrostomy (principal); I10 Essential (primary) hypertension; F03.90 Unspecified dementia, unspecified severity, without behavioral disturbance, psychotic disturbance, mood disturbance, and anxiety; I50.9 Heart failure, unspecified; Z95.0 Presence of cardiac pacemaker

== ENCOUNTER 2017-06-30 10:16 | Emergency (ER) | payer MEDICARE ==
[2017-01-11 15:45] VITALS: BMI 15.9
== END 2017-06-30 13:18 | disposition home or self-care (01) ==
LOC: D.ER 10:16
DX: K94.29 Other complications of gastrostomy (principal); I10 Essential (primary) hypertension; Z95.0 Presence of cardiac pacemaker; F17.200 Nicotine dependence, unspecified, uncomplicated

== ENCOUNTER 2017-07-02 13:00 | Emergency (ER) | payer MEDICARE ==
[2017-01-11 15:45] VITALS: BMI 15.9
== END 2017-07-02 15:20 ==
LOC: D.ER 13:00
DX: I46.9 Cardiac arrest, cause unspecified (principal); I34.0 Nonrheumatic mitral (valve) insufficiency; I10 Essential (primary) hypertension